=== PATIENT | male | born 1955 | race Caucasian/White ===

== ENCOUNTER 2020-11-10 18:00 | Emergency (ER) | payer BC, SELFPAY | END 2020-11-10 19:55 | disposition left against medical advice (07) | PROVIDERS: Emergency Provider Emergency Medicine; PCP Family Medicine | DX: R19.7 Diarrhea, unspecified (principal) ==

== ENCOUNTER 2020-11-11 06:40 | Emergency (ER) | payer BC, MEDICARE, SELFPAY ==
--- NOTE | ~2020-11-11 | CT_ITS ---
EXAMINATION: CT ABDOMEN AND PELVIS WITHOUT CONTRAST CLINICAL INFORMATION: Chronic diarrhea. Weight loss. COMPARISON: None TECHNIQUE: Multidetector volumetric imaging was performed from the superior aspect of the liver through the pubic symphysis. Sagittal and coronal reformatted images were obtained on the technologist's workstation. This CT examination was performed using dose optimization techniques as appropriate, variously including the following: *Automated exposure control *Adjustment of mA and/or kV according to patient size (this includes techniques or standardized protocols for targeted exams where dose is matched to indication/reason for exam; i.e. extremities or head) *Use of iterative reconstruction technique DLP: 454 mGy-cm FINDINGS: LUNG BASES: There is a 2 mm peripheral left lower lobe nodule axial image 76 series 4. The lung bases are otherwise clear. LIVER, GALLBLADDER, AND BILIARY TREE: There is a 5 mm low-attenuation lesion high in the left lobe of the liver axial image 8 series 3. There is a 5 mm low-attenuation lesion in the left lobe of the liver axial image 11 series 3. These are difficult to characterize due to small size. No other focal liver lesion is seen. The gallbladder is normal. There is no biliary duct dilatation. PANCREAS: Unremarkable. SPLEEN: Unremarkable. ADRENAL GLANDS: Unremarkable. KIDNEYS AND URETERS: The kidneys are normal in size, shape, and attenuation. No hydronephrosis, hydroureter, or calculi seen. No perinephric stranding. BLADDER: Unremarkable. GASTROINTESTINAL TRACT: There is stool throughout the colon questionable for constipation. The small and large bowel are unremarkable. The appendix is unremarkable. ABDOMINAL WALL: No significant hernia is appreciated. There are postsurgical changes to the left lower abdominal wall post hernia repair. LYMPH NODES: Normal. VASCULAR: Unremarkable. PELVIC VISCERA: Unremarkable. OSSEOUS STRUCTURES: There is degenerative disc disease at L4-L5. CT/CT abdomen pelvis wo con IMPRESSION: 2 small low-attenuation liver lesions in the left lobe. These are difficult to characterize due to small size. Stool throughout the colon questionable for constipation.
--- NOTE | ~2020-11-11 | CT_ITS ---
EXAMINATION: CT CHEST WITHOUT CONTRAST CLINICAL INFORMATION: Lung mass. COMPARISON: None TECHNIQUE: Multidetector volumetric CT imaging of the chest was done. Axial MIP volume rendering provided. Sagittal and coronal reformatted images were obtained. This CT examination was performed using dose optimization techniques as appropriate, variously including the following: *Automated exposure control *Adjustment of mA and/or kV according to patient size (this includes techniques or standardized protocols for targeted exams where dose is matched to indication/reason for exam; i.e. extremities or head) *Use of iterative reconstruction technique DLP: 248 mGy-cm FINDINGS: TABLE AND DESK FINISHER: Unremarkable. LUNGS: The lungs are well-expanded and clear of acute pneumonic process. There is focal atelectatic changes right CP angle. There is a 3 mm nodule right upper lobe axial image 32/4. There is a focal atelectatic changes in the area of previously described 200 lung nodule in the left CP angle on axial image 470/7. MEDIASTINUM: The thyroid lobes are symmetrical and normal. The central trachea and the bronchi are widely patent. Heart size and the great vessels are normal caliber. There is no pericardial effusion. No abnormal size mediastinal lymph nodes or mass seen. PLEURA: There is no pleural effusion. No pleural mass or thickening. AXILLA: There are small shotty lymph nodes in the axilla. The chest wall is unremarkable. UPPER ABDOMEN: There is a punctate 5 mm left hepatic lobe hypodensity. No additional liver lesions seen. There is no intrahepatic ductal dilatation. Visualized gallbladder, spleen, pancreas and bilateral adrenal glands are unremarkable. OSSEOUS STRUCTURES: There is moderate ventral spondylosis mid and lower dorsal spine. No lytic or sclerotic process seen. CT/CT chest wo con IMPRESSION: Small 3 mm right upper lobe pulmonary nodule. Previously described 2 mm peripheral left lower lobe pulmonary nodule is not visualized.. There is focal atelectatic changes
[2020-11-11 08:22] VITALS: BP 129/42; PULSE 45; RESP 14; TEMP 36.6; O2SAT 99; BMI 21.9
--- NOTE | 2020-11-11 09:09 | ED_ITS ---
HPI - Nausea/Vomiting/Diarrhea General Chief complaint: Nausea/Vomiting/Diarrhea Stated complaint: Diarrhea Time Seen by Provider: 11/11/20 09:09 History of Present Illness HPI Narrative: This is a 65-year-old male who presents to the emergency department today with complaints of diarrhea. He states this started around October 31 it started as stomach gurgling for about 3 days, and then he reports diarrhea that is liquid and beige in color. States that he is going to the bathroom anywhere between 10-12 times a day. He denies any other symptoms, and denies abdominal pain/discomfort. Since the onset of the diarrhea he states he has lost about 7 pounds. He states he took two COVID test last week a rapid and a PCR test both of which were negative at the time. He denies recent travel, recent sick contacts and recent antibiotic use. Nothing like this has happened to him before. He tried immodium, bland diet and clear liquids with no relief. Past medical history significant for HTN. Previous hernia repairs in the past but no other abdominal surgeries in the past. Last colonoscopy about 5 years ago which was normal per patient. He reached out to his PCP which told him to come to the ED. He reports fatigue, weakness,anorexia, lethargy and diarrhea. But denies abdominal pain, fevers, chills, chest pain, difficulty urinating, and shortness of breath. MD elicited complaint: diarrhea Pertinent past history: anorexia Onset (ago): day(s) (About 10 days ago, progressivly worsening ) Description of diarrhea: watery (zhou/beige in color ) Associated abdominal pain: No Location of pain: none Severity: moderate Exacerbating factors: none Relieving factors: none Associated symptoms: denies other symptoms Treatment prior to arrival: immodium (no relief) Related Data Allergies Allergy/AdvReac Type Severity Reaction Status Date / Time No Known Allergies Allergy Verified 11/11/20 08:28 Review of Systems Constitutional: Constitutional: Reports as per HPI, Reports anorexia, Reports fatigue and Reports weakness Eyes: Eyes: Reports no additional eye complaints ENT: Reports system reviewed and no additional complaints, except as documented Cardiovascular: Cardiovascular: Reports no additional cardiovascular complaints Respiratory: Respiratory: Reports no additional respiratory complaints and Reports no additional respiratory complaints Gastrointestinal: Gastrointestinal: Reports change in bowel habits, Reports diarrhea and Reports loose stools Genitourinary: Genitourinary: Reports no additional male genitourinary complaints and Reports as per HPI Musculoskeletal: Musculoskeletal: Reports no additional musculoskeletal complaints Neurologic: Reports weakness Endocrine: Endocrine: Reports fatigue [facility] Past Medical History Medical History (Updated 11/11/20 @ 14:11 by Dylan Betancourt MD) Bradycardia Hernia Hx of fracture of clavicle Hypertension Social History Social History Patient Tobacco Use Status: Never used Tobacco Use of substances other than those prescribed or required for medical reasons: No Advance Directives: No Advance Directives Information Provided: No Physical Exam Vital Signs: Vital Signs: Last Vital Signs Temp 98.3 F 11/11/20 14:12 Pulse 51 11/11/20 14:12 Resp 16 11/11/20 14:12 BP 134/67 11/11/20 14:12 Pulse Ox 98 11/11/20 14:12 Body Mass Index 21.9 Const: General: healthy appearing, comfortable, no acute distress, alert and awake Nutritional Appearance: average body habitus Orientation/consciousness: patient oriented x3 Limitations: no limitations HENMT: Head: Yes normal to inspection Teeth and gingiva: dentition normal and gingiva normal Throat: Yes posterior oropharynx normal and Yes tonsils normal Eyes: General: appearance normal, both eyes and all related structures Eyelids: Yes eyelids normal Conjunctivae: conjunctivae normal Sclerae: sclerae normal Corneas: corneas normal Pupils: Equal, round and reactive pupils present Chest: Chest palpation & inspection: normal inspection of the chest and normal palpation of entire chest wall Resp: Effort & Inspection: normal respiratory effort and able to speak in complete sentences Auscultation: clear to auscultation bilaterally Cardio: Rate: bradycardic (HR in the low 50's normal for patient ) Rhythm: regular rhythm GI: Inspection: Yes normal to inspection Palpation (GI): Soft to palpation (non-tender not distended ) Auscultation: normal bowel sounds Neuro: General: patient oriented x3, gait normal and moves all extremities Cranial nerves: Yes Equal, round and reactive pupils present Gait exam (Neuro): Normal gait present Motor exam (neuro): 5/5 motor strength present throughout MDM - Nausea/Vomiting/Diarrhea MDM Narrative Medical decision making narrative: Patient reports 7 lb weight loss in two weeks with diarrhea. Will order basic labs, assess hydration status, obtain a stool study, urine and CT of the abdomen to rule out mass or malignancy. Plan to also rehydrate patient. Disposition based of of labs and imaging results. Will continue to observe. CT chest CT abdomen essentially so small nodules in the lung no acute findings , but amount of stool in the abdomen patient a bowel movement in the ER semi solid stool sample was sent for C diff which is unlikely. Patient advised to follow with PCP Lab Data Attestation: I reviewed the patient's lab results. Result diagrams: 11/11/20 10:04 11/11/20 10:04 Labs: Lab Results 11/11/20 11/11/20 11/11/20 Range/Units 10:04 10:04 13:17 WBC 5.7 (4.8-10.8) X10*3/uL RBC 3.96 L (4.60-5.80) X10*6/uL Hgb 12.5 L (14.0-18.0) g/dl Hct 36.3 L (42-52) % MCV 91.7 (80-98) fL MCH 31.6 (27.0-33.0) pg MCHC 34.4 (31.0-36.0) g/dl RDW 12.3 (11.0-16.0) % Plt Count 201 (160-400) X10*3/uL MPV 9.8 (9.4-12.4) fL Immature Gran % (Auto) 0.4 (0.0-0.4) % Neut % (Auto) 61.8 (45-73) % Lymph % (Auto) 30.1 (20-40) % [place] % (Auto) 6.1 (2-11) % Eos % (Auto) 0.9 (0-4) % Baso % (Auto) 0.7 (0-2) % Lymph # (Auto) 1.7 (1.2-4.9) X10*3/uL [place] # (Auto) 0.4 (0.1-1.2) X10*3/uL Eos # (Auto) 0.1 (0.0-0.4) X10*3/uL Baso # (Auto) 0.0 (0.0-0.2) X10*3/uL Abs Immat Gran (auto) 0.02 (0.00-0.03) X10*3/uL Absolute Neuts (auto) 3.5 (2.0-8.3) X10*3/uL Absolute Nucleated RBC 0.000 (0.0-0.012) X10*3/uL Nucleated RBC % (auto) 0.0 (0.0-0.2) /100WBC Sodium 139 (135-145) mmol/L Potassium 3.6 (3.3-5.1) mmol/L Chloride 105 (96-108) mmol/L Carbon Dioxide 26 (22-29) mmol/L Anion Gap 12 (12-20) BUN 16 (9-16) mg/dL Creatinine 0.86 (0.5-1.4) mg/dL Estim Creat Clear Calc 81.8 Estimated GFR > 60 Random Glucose 92 (60-115) mg/dL Calcium 8.7 (8.4-10.2) mg/dL Total Bilirubin 0.6 (0.0-1.0) mg/dL Direct Bilirubin 0.2 (0.0-0.5) mg/dL AST 27 (5-37) U/L ALT 25 (0-40) U/L Alkaline Phosphatase 53 (39-117) U/L Total Protein 6.1 L (6.5-8.0) g/dL Albumin 3.9 (3.5-5.0) g/dL Lipase 18 (8-78) U/L C. difficile Tox B Gene NEGATIVE (Negative) Discharge Plan Discharge Clinical Impression: Gastroenteritis Patient Disposition: Home, Self-Care Instructions: Gastroenteritis (ED) Additional Instructions: Follow up with GI and PCP If symptoms worsen or persist, return to the ED or visit your primary care provider Avoid spicy and greasy foods. Follow a bland diet. Ensure adequate hydration Interventions: ED Discharge Assessment Last Done: 11/11/20 14:19 Discharge Date/Time: 11/11/20 14:19 Print Language: Dominican
[2020-11-11] MEDS: 0.9 % Sodium Chloride 1,000 ML 999 ML IVCONT (10:09)
[2020-11-11 10:11] LABS: MANUAL DIFF FLAG NO
[2020-11-11 10:12] LABS: Basophils Percent Auto 0.7 % (0-2); Eosinophils Absolute Auto 0.1 X10*3/uL (0.0-0.4); Eosinophils Percent Auto 0.9 % (0-4); Hematocrit 36.3 % (42-52); Hemoglobin 12.5 g/dl (14.0-18.0); Imm Gran Abs Auto 0.02 X10*3/uL (0.00-0.03); Imm Gran Pct Auto 0.4 % (0.0-0.4); Lymphocytes Absolute Auto 1.7 X10*3/uL (1.2-4.9); Lymphocytes Percent Auto 30.1 % (20-40); Mean Corpuscular HGB Conc 34.4 g/dl (31.0-36.0); Mean Corpuscular Hemoglobin 31.6 pg (27.0-33.0); Mean Corpuscular Volume 91.7 fL (80-98); Mean Platelet Volume 9.8 fL (9.4-12.4); Monocytes Absolute Auto 0.4 X10*3/uL (0.1-1.2); Monocytes Percent Auto 6.1 % (2-11); Neutrophils Absolute Auto 3.5 X10*3/uL (2.0-8.3); Neutrophils Percent Auto 61.8 % (45-73); Platelet Count 201 X10*3/uL (160-400); Red Blood Count 3.96 X10*6/uL (4.60-5.80); Red Cell Distribution Width 12.3 % (11.0-16.0); White Blood Count 5.7 X10*3/uL (4.8-10.8)
[2020-11-11 10:28] LABS: Alanine Aminotransferase 25 U/L (0-40); Albumin Level 3.9 g/dL (3.5-5.0); Alkaline Phosphatase 53 U/L (39-117); Anion Gap 12 (12-20); Aspartate Amino Transferase 27 U/L (5-37); Bilirubin Direct 0.2 mg/dL (0.0-0.5); Bilirubin Total 0.6 mg/dL (0.0-1.0); Blood Urea Nitrogen 16 mg/dL (9-16); Calcium 8.7 mg/dL (8.4-10.2); Carbon Dioxide 26 mmol/L (22-29); Chloride 105 mmol/L (96-108); Creatinine Clr Calc Pharmacy 81.8; Estimated Glomerular Filt Rate > 60; Glucose Random 92 mg/dL (60-115); Lipase 18 U/L (8-78); Potassium 3.6 mmol/L (3.3-5.1); Sodium 139 mmol/L (135-145); Total Protein 6.1 g/dL (6.5-8.0)
[2020-11-11 11:18] VITALS: BP 128/72; PULSE 48; RESP 14; TEMP 36.6; O2SAT 100
[2020-11-11 14:12] VITALS: BP 134/67; PULSE 51; RESP 16; TEMP 36.8; O2SAT 98
[2020-11-11 14:20] LABS: CDiff Gene PCR NEGATIVE (Negative)
== END 2020-11-11 14:19 | disposition home or self-care (01) ==
PROVIDERS: Emergency Provider Internal Medicine; PCP Family Medicine
DX: K52.9 Noninfective gastroenteritis and colitis, unspecified (principal); Z79.899 Other long term (current) drug therapy
CPT/HCPCS: 36415; 71250; 74176; 80048; 80076; 83690; 85025; 87493; 96360; 99284

== ENCOUNTER 2021-01-10 20:54 | Emergency (ER) | payer BC, SELFPAY ==
--- NOTE | 2021-01-10 21:01 | ECG_ITS ---
Test Reason : DIZZINESS Blood Pressure : / mmHG Vent. Rate : 051 BPM Atrial Rate : 051 BPM P-R Int : 168 ms QRS Dur : 110 ms QT Int : 468 ms P-R-T Axes : 004 -10 040 degrees QTc Int : 431 ms Sinus bradycardia Moderate voltage criteria for LVH, may be normal variant ( Sokolow-Hopkins , [place] product ) Borderline ECG No previous ECGs available Referred By: Dylan Betancourt Electronically Signed By:SHALA ROBBINS MD
[2021-01-10 21:12] VITALS: BP 110/60; BP 128/61; PULSE 50; PULSE 57; RESP 18; TEMP 36.8; O2SAT 98; BMI 22.8
--- NOTE | 2021-01-10 21:20 | ED_ITS ---
HPI - Syncope General Chief Complaint: Dizziness Stated Complaint: near syncope Time Seen by Provider: 01/10/21 21:15 Source: patient Mode of arrival: EMS Limitations: no limitations History of Present Illness HPI narrative: Patient with no known coronary disease history of hypertension in good health very active had dinner earlier and then had few drinks and weight marijuana for the 1st time while sitting started feeling lightheaded and weak cold sweats almost passed out. No chest pain no palpitations no abdominal pain. While EN route patient felt nauseated and vomited 1 time also after arrival patient had abdominal cramps and had a 1 loose bowel. Patient never had similar episode in the past no history of palpitation or chest pain no headache no focal deficit Related Data Allergies Allergy/AdvReac Type Severity Reaction Status Date / Time No Known Allergies Allergy Verified 11/11/20 08:28 Review of Systems Review of Systems: Yes all other systems are reviewed and are negative [facility] Past Medical History Medical History Bradycardia Hernia Hx of fracture of clavicle Hypertension Social History Social History Patient Tobacco Use Status: Never used Tobacco Advance Directives: No Advance Directives Information Provided: No Physical Exam Vital Signs: Vital Signs: Last Vital Signs Temp 98.0 F 01/10/21 22:47 Pulse 64 01/11/21 00:37 Resp 16 01/11/21 00:37 BP 126/72 01/11/21 00:37 Pulse Ox 98 01/11/21 00:37 Body Mass Index 22.8 Appearance: Alert. Oriented X3. No acute distress. Looks exhausted and weak Eyes: No pallor or icterus ENT: Pharynx normal. Oral Mucosa moist Neck: Normal inspection. Neck supple. CVS: Normal heart rate and rhythm. Pulses normal. Respiratory: No respiratory distress. Equal air entry bilateral, no wheezing/rales/rhonchi Abdomen: Soft and nontender. Bowel sounds are present, no mass palpable, no CVA tenderness Skin: Skin warm and dry. Normal skin color. Normal skin turgor. Extremities: No lower extremity edema. No calf tenderness Neuro: Oriented X 3. No motor deficit. No sensory deficit.No cerebellar signs , cranial nerves II-XII intact MDM - Syncope MDM Narrative Medical decision making narrative: Patient near-syncope episode likely vasovagal 2 sets of high sensitive troponin negative EKG normal no chest pain or palpitation patient feeling much better after IV fluids and p.o. fluids ambulatory now , orthostatics normal will discharge patient home advised to follow with PCP Lab Data Attestation: I reviewed the patient's lab results. Result diagrams: 01/10/21 21:35 01/10/21 21:35 Labs: Lab Results 01/10/21 01/10/21 01/10/21 Range/Units 21:35 21:35 21:35 WBC 7.4 (4.8-10.8) X10*3/uL RBC 3.69 L (4.60-5.80) X10*6/uL Hgb 11.8 L (14.0-18.0) g/dl Hct 35.3 L (42.0-52.0) % MCV 95.7 (80.0-98.0) fL MCH 32.0 (27.0-33.0) pg MCHC 33.4 (31.0-36.0) g/dl RDW 13.0 (11.0-16.0) % Plt Count 185 (160-400) X10*3/uL MPV 9.7 (9.4-12.4) fL Immature Gran % (Auto) 0.3 (0.0-0.4) % Neut % (Auto) 56.4 (45-73) % Lymph % (Auto) 33.4 (20-40) % [place] % (Auto) 7.1 (2-11) % Eos % (Auto) 2.4 (0-4) % Baso % (Auto) 0.4 (0-2) % Lymph # (Auto) 2.5 (1.2-4.9) X10*3/uL [place] # (Auto) 0.5 (0.1-1.2) X10*3/uL Eos # (Auto) 0.2 (0.0-0.4) X10*3/uL Baso # (Auto) 0.0 (0.0-0.2) X10*3/uL Abs Immat Gran (auto) 0.02 (0.00-0.03) X10*3/uL Absolute Neuts (auto) 4.2 (2.0-8.3) x10*3/uL Absolute Nucleated RBC 0.000 (0.0-0.012) X10*3/uL Nucleated RBC % (auto) 0.0 (0.0-0.2) /100WBC Sodium 141 (135-145) mmol/L Potassium 3.4 (3.3-5.1) mmol/L Chloride 107 (96-108) mmol/L Carbon Dioxide 26 (22-29) mmol/L Anion Gap 11 L (12-20) BUN 16 (9-16) mg/dL Creatinine 0.94 (0.5-1.4) mg/dL Estim Creat Clear Calc 77.9 Estimated GFR > 60 Random Glucose 125 H D (60-115) mg/dL Calcium 8.3 L (8.4-10.2) mg/dL Magnesium 2.1 (1.6-2.6) mg/dL Total Bilirubin 0.3 (0.0-1.0) mg/dL AST 28 (5-37) U/L ALT 31 (0-40) U/L Alkaline Phosphatase 59 (39-117) U/L Troponin I High Sens 9.3 (<3.5-35.0) ng/L Total Protein 6.0 L (6.5-8.0) g/dL Albumin 3.9 (3.5-5.0) g/dL Urine Opiates Screen (Not Detect) Urine Fentanyl Screen (Not Detect) Ur Barbiturates Screen (Not Detect) Ur Phencyclidine Scrn (Not Detect) Ur Amphetamines Screen (Not Detect) U Benzodiazepines Scrn (Not Detect) Urine Cocaine Screen (Not Detect) U Marijuana (THC) Screen (Not Detect) Ethyl Alcohol mg/dL 01/10/21 01/11/21 01/11/21 Range/Units 21:35 00:20 00:43 WBC (4.8-10.8) X10*3/uL RBC (4.60-5.80) X10*6/uL Hgb (14.0-18.0) g/dl Hct (42.0-52.0) % MCV (80.0-98.0) fL MCH (27.0-33.0) pg MCHC (31.0-36.0) g/dl RDW (11.0-16.0) % Plt Count (160-400) X10*3/uL MPV (9.4-12.4) fL Immature Gran % (Auto) (0.0-0.4) % Neut % (Auto) (45-73) % Lymph % (Auto) (20-40) % [place] % (Auto) (2-11) % Eos % (Auto) (0-4) % Baso % (Auto) (0-2) % Lymph # (Auto) (1.2-4.9) X10*3/uL [place] # (Auto) (0.1-1.2) X10*3/uL Eos # (Auto) (0.0-0.4) X10*3/uL Baso # (Auto) (0.0-0.2) X10*3/uL Abs Immat Gran (auto) (0.00-0.03) X10*3/uL Absolute Neuts (auto) (2.0-8.3) x10*3/uL Absolute Nucleated RBC (0.0-0.012) X10*3/uL Nucleated RBC % (auto) (0.0-0.2) /100WBC Sodium (135-145) mmol/L Potassium (3.3-5.1) mmol/L Chloride (96-108) mmol/L Carbon Dioxide (22-29) mmol/L Anion Gap (12-20) BUN (9-16) mg/dL Creatinine (0.5-1.4) mg/dL Estim Creat Clear Calc Estimated GFR Random Glucose (60-115) mg/dL Calcium (8.4-10.2) mg/dL Magnesium (1.6-2.6) mg/dL Total Bilirubin (0.0-1.0) mg/dL AST (5-37) U/L ALT (0-40) U/L Alkaline Phosphatase (39-117) U/L Troponin I High Sens 9.3 (<3.5-35.0) ng/L Total Protein (6.5-8.0) g/dL Albumin (3.5-5.0) g/dL Urine Opiates Screen Not Detected (Not Detect) Urine Fentanyl Screen Not Detected (Not Detect) Ur Barbiturates Screen Not Detected (Not Detect) Ur Phencyclidine Scrn Not Detected (Not Detect) Ur Amphetamines Screen Not Detected (Not Detect) U Benzodiazepines Scrn Not Detected (Not Detect) Urine Cocaine Screen Not Detected (Not Detect) U Marijuana (THC) Screen POSITIVE H (Not Detect) Ethyl Alcohol < 10 mg/dL ECG Data Attestation: I personally reviewed and interpreted this ECG as follows: Interpretation: Sinus bradycardia heart rate 51 beats per minute LVH no acute ST-T changes no acute ischemia Discharge Plan Discharge Clinical Impression: Vasovagal near-syncope Patient Disposition: Home, Self-Care Instructions: Near Syncope (ED) Additional Instructions: Drink plenty of fluids Follow with PCP for further evaluation including stress test/echocardiogram Report to the ER for recurrence of the similar episodes
[2021-01-10 21:40] LABS: MANUAL DIFF FLAG NO
[2021-01-10 21:41] LABS: Basophils Percent Auto 0.4 % (0-2); Eosinophils Absolute Auto 0.2 X10*3/uL (0.0-0.4); Eosinophils Percent Auto 2.4 % (0-4); Hematocrit 35.3 % (42.0-52.0); Hemoglobin 11.8 g/dl (14.0-18.0); Imm Gran Abs Auto 0.02 X10*3/uL (0.00-0.03); Imm Gran Pct Auto 0.3 % (0.0-0.4); Lymphocytes Absolute Auto 2.5 X10*3/uL (1.2-4.9); Lymphocytes Percent Auto 33.4 % (20-40); Mean Corpuscular HGB Conc 33.4 g/dl (31.0-36.0); Mean Corpuscular Volume 95.7 fL (80.0-98.0); Mean Platelet Volume 9.7 fL (9.4-12.4); Monocytes Absolute Auto 0.5 X10*3/uL (0.1-1.2); Monocytes Percent Auto 7.1 % (2-11); Neutrophils Absolute Auto 4.2 x10*3/uL (2.0-8.3); Neutrophils Percent Auto 56.4 % (45-73); Platelet Count 185 X10*3/uL (160-400); Red Blood Count 3.69 X10*6/uL (4.60-5.80); White Blood Count 7.4 X10*3/uL (4.8-10.8)
[2021-01-10 21:53] LABS: Ethanol < 10 mg/dL
[2021-01-10 21:57] LABS: Alanine Aminotransferase 31 U/L (0-40); Albumin Level 3.9 g/dL (3.5-5.0); Alkaline Phosphatase 59 U/L (39-117); Anion Gap 11 (12-20); Aspartate Amino Transferase 28 U/L (5-37); Bilirubin Total 0.3 mg/dL (0.0-1.0); Blood Urea Nitrogen 16 mg/dL (9-16); Calcium 8.3 mg/dL (8.4-10.2); Carbon Dioxide 26 mmol/L (22-29); Chloride 107 mmol/L (96-108); Creatinine Clr Calc Pharmacy 77.9; Estimated Glomerular Filt Rate > 60; Glucose Random 125 mg/dL (60-115); Magnesium 2.1 mg/dL (1.6-2.6); Potassium 3.4 mmol/L (3.3-5.1); Sodium 141 mmol/L (135-145)
[2021-01-10 22:02] LABS: Troponin-I High Sensitivity 9.3 ng/L (<3.5-35.0)
[2021-01-10] MEDS: 0.9 % Sodium Chloride 1,000 ML 999 ML IVCONT (22:10)
[2021-01-10 22:47] VITALS: BP 132/72; PULSE 53; RESP 16; TEMP 36.7; O2SAT 99
[2021-01-11 00:33] VITALS: BP 125/75; PULSE 62
[2021-01-11 00:35] VITALS: BP 112/79; PULSE 66
[2021-01-11 00:37] VITALS: BP 126/72; PULSE 64; PULSE 76; RESP 16; O2SAT 98
[2021-01-11 00:47] LABS: Troponin-I High Sensitivity 9.3 ng/L (<3.5-35.0)
[2021-01-11 01:03] LABS: Amphetamine Screen Urine Not Detected (Not Detect); Barbiturates, Urine Not Detected (Not Detect); Benzodiazepines Screen Urine Not Detected (Not Detect); Cannabinoid Screen Urine POSITIVE (Not Detect); Cocaine Screen Urine Not Detected (Not Detect); Fentanyl, urine Not Detected (Not Detect); Opiate Screen Urine Not Detected (Not Detect); Phencyclidine Screen Urine Not Detected (Not Detect)
== END 2021-01-11 02:02 | disposition home or self-care (01) ==
PROVIDERS: Emergency Provider Internal Medicine; PCP Family Medicine
DX: R55 Syncope and collapse (principal); R42 Dizziness and giddiness; Z79.899 Other long term (current) drug therapy
CPT/HCPCS: 36415; 80053; 80307; 82077; 83735; 84484; 85025; 93005; 96360; 99284

== ENCOUNTER 2021-12-27 15:45 | Emergency (ER) | payer MEDICARE, BC, SELFPAY ==
[2021-12-27 17:21] VITALS: BP 166/85; PULSE 55; RESP 18; TEMP 36; O2SAT 99; BMI 22.8
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
[2021-12-27] MEDS: Diphth,Pertus(ACell),Tet Adult 0.5 ML SYRINGE IM (20:16)
--- OUTSIDE RECORDS SUMMARY | 2021-12-27 20:16 | XMS_ITS | Continuity of Care Document ---
:1955 Author Organization [facility] Address [address] [place] [address]- Care Team Providers Name Role Phone Gokul FINCH, Iris Smith Primary Care Physician Encounter [facility] Date(s): 04/09/20 - 04/09/[address] [id number] Discharge Disposition: A-D/C Home Attending Physician: Moi Monterroso MD Admitting Physician: Moi Monterroso MD Referring Physician: Moi Monterroso MD Allergies, Adverse Reactions, Alerts Substance Reaction Severity Status Kiwi1 throat closes Active 1laryngeal swelling, resolution with benadryl Immunizations Given and Recorded Vaccine Date Status Refusal Reason Influenza Virus Vaccine (oldterm) 12/06/19 Recorded tetanus-diphtheria toxoids (Td) 10/11/19 Recorded Not Given Vaccine Date Status Refusal Reason pneumococcal 13-valent vaccine1 03/24/20 Not Given Permanently Refused 1Result Comment: med not available Medications Colace sodium 100 mg oral capsule 100 mg, 1, capsule, By Mouth, 2 times a day, # 60 capsule, Refills 0, Tot. Refills 0, Maintenance, 03/24/20 12:03:00 EST, Route to Pharmacy Electronically, [facility], Partial fill upon patient request if the prescription is for a schedu... Start Date: 03/24/20 Stop Date: 04/23/20 Status: OrderedFish Oil By Mouth, 0 Refills, Maintenance, 11/17/18 14:53:18 EDT Start Date: 11/17/18 Status: Orderedgarlic oral tablet 0 Refills, Maintenance, 04/02/19 9:59:00 EST Start Date: 04/02/19 Status: Orderedhydrochlorothiazide 12.5 mg oral tablet 1 tablet = 12.5 mg, By Mouth, Daily, # 30 tablet, 5 Refills, Maintenance, 04/07/20 16:40:00 EST, Tablet, [facility][id number], Partial fill upon patient request if the prescription is for a schedule II opioid drug., 175.26, cm, 04/04/20 13:50:0... Start Date: 04/07/20 Status: OrderedIron 100 Plus By Mouth, Daily, 0 Refills, Maintenance, 09/20/19 10:31:00 EDT Start Date: 09/20/19 Status: Orderedlosartan 100 mg oral tablet 1 tablet = 100 mg, By Mouth, Daily, # 30 tablet, 5 Refills, Maintenance, 04/07/20 16:41:00 EST, Tablet, [facility] #[id number], Partial fill upon patient request if the prescription is for a schedule II opioid drug., 175.26, cm, 04/04/20 13:50:00... Start Date: 04/07/20 Status: Orderedlosartan 100 mg oral tablet 1 tablet = 100 mg, By Mouth, Daily, # 30 tablet, 0 Refills, Maintenance, 03/24/20 6:25:00 EST, Tablet, Partial fill upon patient request if the prescription is for a schedule II opioid drug. Start Date: 03/24/20 Status: OrderedMultivitamin Daily, 0 Refills, Maintenance, 11/17/18 14:53:09 EDT Start Date: 11/17/18 Status: OrderedOccupational Therapy Occupational Therapy, See Instructions, # 1 each, Refills 0, Tot. Refills 0, Maintenance, Outpatientoccupational therapy, 03/24/20 10:20:00 EST, Supply Start Date: 03/24/20 Status: OrderedoxyCODONE 5 mg oral capsule 1 capsule = 5 mg, By Mouth, Every 4 hours, # 42 capsule, 0 Refills, Maintenance, 04/09/20 9:59:00 EST, Capsule, Partial fill upon patient request if the prescription is for a schedule II opioid drug. Start Date: 04/09/20 Status: OrderedTylenol 325 mg oral tablet 650 mg, 2, tablet, By Mouth, Every 4 hours, for 30 days, # 360 tablet, Refills 0, Tot. Refills 0, Acute 04/23/20 12:03:00 EST, 03/24/20 12:03:00 EST, Route to Pharmacy Electronically, [facility], Partial fill upon patient request if the... Start Date: 03/24/20 Stop Date: 04/23/20 Status: Ordered Problem List Condition Effective Dates Status Health Status Informant Anemia(Confirmed) Active Asthma(Confirmed) Active Multiple closed fractures of ribs of Active left side(Confirmed) Complicated migraine(Confirmed) Active History of squamous cell carcinoma of Active skin(Confirmed) Hypertension(Confirmed) Active Results Radiology Reports Exam Date Time Procedure Performing Provider Status 04/09/20 9:30 AM C-Arm < 1 Hour Katherine Gregorio; Auth ([facility] ed) Notes:(C-Arm < 1 Hour) Reason For Exam: left clavicle ORIFRESULT: C-Arm < 1 Hour PROCEDURE: Clavicle Complete Left, C-Arm < 1 Hour CLINICAL INDICATION: 65 years old Male with Reason: Left clavicle ORIF; Special Instructions: Ft 0.5TT 50 min 4 images. COMPARISONS: 03/23/2020.. FINDINGS: 2 intraoperative fluoroscopic images were submitted for interpretation. A radiologist was not in attendance. A side plate and transfixing screws through the clavicle shaft with partial visualization of the midclavicular fracture site. The alignment is anatomical. The hardware is intact. Minimally displaced fractures in the left lateral third and fourth ribs. There is also a minimally displaced fracture in the left posterior fourth rib. Technologist time: 50 minutes Fluoroscopy time: 0.5 seconds DAP:0.1358 Gycm2 IMPRESSION: 1. Anatomical alignment and intact hardware status post clavicle fracture repair. Please refer to the operative note for surgical details. 2. Minimally displaced fractures in the left third and fourth ribs as seen on prior CT. Thank you for allowing me to participate in the care of this patient. WSN: [id number] Ordering Physician: Moi Monterroso Dictated By: Jaun Navarro MD Dictated Date/Time: 04/09/20 12:37 p Reviewed By: Jaun Navarro MD Signed By: Jaun Navarro MD Signed Date/Time: 04/09/20 12:37 pm Transcribed By: ABDIRAHMAN Transcribed Date/Time: 04/09/20 12:33 pm Exam Date Time Procedure Performing Provider Status 04/09/20 9:30 AM Clavicle Complete Left Katherine Gregorio; Auth (Verified) Notes:(Clavicle Complete Left) Reason For Exam: Left clavicle ORIFRESULT: Clavicle Complete Left PROCEDURE: Clavicle Complete Left, C-Arm < 1 Hour CLINICAL INDICATION: 65 years old Male with Reason: Left clavicle ORIF; Special Instructions: Ft 0.5TT 50 min 4 images. COMPARISONS: 03/23/2020.. FINDINGS: 2 intraoperative fluoroscopic images were submitted for interpretation. A radiologist was not in attendance. A side plate and transfixing screws through the clavicle shaft with partial visualization of the midclavicular fracture site. The alignment is anatomical. The hardware is intact. Minimally displaced fractures in the left lateral third and fourth ribs. There is also a minimally displaced fracture in the left posterior fourth rib. Technologist time: 50 minutes Fluoroscopy time: 0.5 seconds DAP:0.1358 Gycm2 IMPRESSION: 1. Anatomical alignment and intact hardware status post clavicle fracture repair. Please refer to the operative note for surgical details. 2. Minimally displaced fractures in the left third and fourth ribs as seen on prior CT. Thank you for allowing me to participate in the care of this patient. WSN: [id number] Ordering Physician: Moi Monterroso Dictated By: Jaun Navarro MD Dictated Date/Time: 04/09/20 12:37 p Reviewed By: Jaun Navarro MD Signed By: Jaun Navarro MD Signed Date/Time: 04/09/20 12:37 pm Transcribed By: ABDIRAHMAN Transcribed Date/Time: 04/09/20 12:33 pm Vital Signs Most recent to oldest 1 2 3 [Reference Range]: Height 175.26 cm 175.26 cm (04/09/20 7:02 AM) (04/01/20 3:09 PM) Weight 74 kg 70.45 kg (04/09/20 7:02 AM) (04/01/20 3:09 PM) Oxygen Saturation [94-100 96 % 96 % 96 % %] (04/09/20 11:45 AM) (04/09/20 11:30 AM) (04/09/20 1 1:15 AM) Pulse Rate [55-90 bpm] 53 bpm *L* (2/10/21 7:02 AM) Body Mass Index 24.09 22.94 [18.5-24.99] (04/09/20 7:02 AM) (04/01/20 3:09 PM) Blood Pressure 131/81 mm Hg 141/81 mm Hg 141/81 mm Hg [90-138/55-84 mm Hg] (04/09/20 11:45 AM) *H* *H* (04/09/20 11:30 AM) (04/09/20 11:1 5 AM) Respiratory Rate [16-30 16 br/min 19 br/min 17 br/mi n br/min] (04/09/20 11:45 AM) (04/09/20 11:30 AM) (04/09/20 1 1:15 AM) Temperature [96.8-100.4 97.7 DegF 98 DegF DegF] (04/09/20 9:45 AM) (04/09/20 7:02 AM) Liters per Minute 6 L/min 6 L/min 6 L/min (04/09/20 10:15 AM) (04/09/20 10:00 AM) (04/09/20 9 :45 AM) Mode of Delivery (Oxygen) Room air Room air Room a ir (04/09/20 11:30 AM) (04/09/20 10:45 AM) (04/09/20 1 0:30 AM) Blood pressure sites Arm, left (04/09/20 7:02 AM) Temperature Route Temporal Temporal (04/09/20 9:45 AM) (04/09/20 7:02 AM) Dry Weight 70.45 kg (04/01/20 3:09 PM) Weight Obtained Via Standing scale Patient/family stated (04/09/20 7:02 AM) (04/01/20 3:09 PM) Dry Weight Obtained Via Patient/family stated (04/01/20 3:09 PM) Social History Social History Type Response Smoking Status Never (less than 100 in life time) entered on: 01/05/18 Sex Male
--- OUTSIDE RECORDS SUMMARY | 2021-12-27 20:16 | XMS_ITS | Continuity of Care Document ---
:1955 Author Organization [facility] Address [address] [place] [address] Drive [address] [place] [address]- Care Team Providers Name Role Phone Gokul FINCH, Iris Smith Primary Care Physician [phone] Encounter [facility] Date(s): 04/01/20 - 05/01/[address] [place] [id number]- Attending Physician: Suzanna Estevez Admitting Physician: Suzanna Estevez Referring Physician: AdmtrSuzanna Allergies, Adverse Reactions, Alerts Substance Reaction Severity [...] 03/24/20 12:03:00 EST, Route to Pharmacy Electronically, [facility], Partial fill upon patient [...] 5 Refills, Maintenance, 04/07/20 16:40:00 EST, Tablet, [facility][id number], Partial fill upon patient request if the prescription is for a schedule II opioid drug., 175.26, cm, 04/04/20 13:50:0... Start Date: 04/07/20 Status: OrderedIron 100 Plus By Mouth, Daily, 0 Refills, Maintenance, 09/20/19 10:31:00 EDT Start Date: 09/20/19 Status: Orderedlosartan 100 mg oral tablet 1 tablet = 100 mg, By Mouth, Daily, # 30 tablet, 5 Refills, Maintenance, 04/07/20 16:41:00 EST, Tablet, [facility][id number], Partial fill upon patient request if the [...] II opioid drug. Start Date: 04/09/20 Status: Ordered Problem List Condition Effective Dates Status Health Status Informant Anemia(Confirmed) Active Asthma(Confirmed) Active Multiple closed fractures of ribs of Active left side(Confirmed) Complicated migraine(Confirmed) Active History of squamous cell carcinoma of Active skin(Confirmed) Hypertension(Confirmed) Active Social History Social History Type Response Smoking Status Never (less than 100 in life time) entered on: 01/05/18 Sex Male
--- OUTSIDE RECORDS SUMMARY | 2021-12-27 20:16 | XMS_ITS | Continuity of Care Document ---
:1955 Author Organization [facility] Address [address] [place] [address]- Care Team Providers Name Role Phone Gokul FINCH, Iris Smith Primary Care Physician Encounter [facility] Date(s): 03/24/20 - 04/23/[address] [place] [id number] Allergies, Adverse Reactions, Alerts Substance Reaction Severity [...] 03/24/20 12:03:00 EST, Route to Pharmacy Electronically, [facility], Partial fill upon patient [...] 5 Refills, Maintenance, 04/07/20 16:40:00 EST, Tablet, [facility][id number], Partial fill upon patient request if the prescription is for a schedule II opioid drug., 175.26, cm, 04/04/20 13:50:0... Start Date: 04/07/20 Status: OrderedIron 100 Plus By Mouth, Daily, 0 Refills, Maintenance, 09/20/19 10:31:00 EDT Start Date: 09/20/19 Status: Orderedlosartan 100 mg oral tablet 1 tablet = 100 mg, By Mouth, Daily, # 30 tablet, 5 Refills, Maintenance, 04/07/20 16:41:00 EST, Tablet, [facility] #[id number], Partial fill upon patient request if the [...]
--- OUTSIDE RECORDS SUMMARY | 2021-12-27 20:16 | XMS_ITS | Continuity of Care Document ---
:1955 Author Organization [facility] Address [address] [place] [address] Drive [address] [place] [address]- Care Team Providers Name Role Phone Gokul FINCH, Iris Smith Primary Care Physician Encounter [facility] Date(s): 04/01/20 - 05/01/[address] [place] [id number]- Attending Physician: Suzanna Estevez Admitting Physician: AdmSuzanna horne Referring Physician: AdmtrSuzanna Allergies, Adverse Reactions, Alerts [...] 03/24/20 12:03:00 EST, Route to Pharmacy Electronically, [facility], Partial fill upon patient [...] 5 Refills, Maintenance, 04/07/20 16:40:00 EST, Tablet, [facility][id number], Partial fill upon patient request if the prescription is for a schedule II opioid drug., 175.26, cm, 04/04/20 13:50:0... Start Date: 04/07/20 Status: OrderedIron 100 Plus By Mouth, Daily, 0 Refills, Maintenance, 09/20/19 10:31:00 EDT Start Date: 09/20/19 Status: Orderedlosartan 100 mg oral tablet 1 tablet = 100 mg, By Mouth, Daily, # 30 tablet, 5 Refills, Maintenance, 04/07/20 16:41:00 EST, Tablet, [facility] #[id number], Partial fill upon patient request if the [...]
--- OUTSIDE RECORDS SUMMARY | 2021-12-27 20:16 | XMS_ITS | Continuity of Care Document ---
:1955 Author Organization [facility] Address [address] [place] [address] Drive [address] [place] [address]- Care Team Providers Name Role Phone Gokul FINCH, Iris Smith Primary Care Physician Encounter [facility] Date(s): 04/01/20 - 04/08/[address] [place] [id number] Attending Physician: Reji FINCH, Curt Allergies, Adverse Reactions, Alerts Substance Reaction Severity [...] 03/24/20 12:03:00 EST, Route to Pharmacy Electronically, [facility], Partial fill upon patient request [...] 5 Refills, Maintenance, 04/07/20 16:40:00 EST, Tablet, [facility][id number], Partial fill upon patient request if the prescription is for a schedule II opioid drug., 175.26, cm, 04/04/20 13:50:0... Start Date: 04/07/20 Status: OrderedIron 100 Plus By Mouth, Daily, 0 Refills, Maintenance, 09/20/19 10:31:00 EDT Start Date: 09/20/19 Status: Orderedlosartan 100 mg oral tablet 1 tablet = 100 mg, By Mouth, Daily, # 30 tablet, 5 Refills, Maintenance, 04/07/20 16:41:00 EST, Tablet, [facility] #[id number], Partial fill upon patient request if the [...] capsule = 5 mg, By Mouth, Every 6 hours, 0 Refills, Maintenance, 04/01/20 13:01:00 EST, Partial fill upon patient request if the prescription is for a schedule II opioid drug. Start Date: 04/01/20 Status: OrderedTylenol 325 mg oral tablet 650 mg, 2, tablet, By Mouth, Every 4 hours, for 30 days, # 360 tablet, Refills 0, Tot. Refills 0, Acute 04/23/20 12:03:00 EST, 03/24/20 12:03:00 EST, Route to Pharmacy Electronically, [facility], Partial fill upon patient request if the... Start Date: 03/24/20 Stop Date: 04/23/20 Status: Ordered Problem List Condition Effective Dates Status Health Status Informant Anemia(Confirmed) Active Asthma(Confirmed) Active Multiple closed fractures of ribs of Active left side(Confirmed) Complicated migraine(Confirmed) Active History of squamous cell carcinoma of Active skin(Confirmed) Hypertension(Confirmed) Active Vital Signs Most recent to oldest [Reference Range]: 1 Height 175.3 cm (04/01/20 12:55 PM) Pulse Rate [55-90 bpm] 58 bpm (04/01/20 12:55 PM) Blood Pressure [90-138/55-84 mm Hg] 121/74 mm Hg (04/01/20 12:55 PM) Temperature [96.8-100.4 DegF] 97.3 DegF (04/01/20 12:55 PM) Blood pressure sites Arm, right (04/01/20 12:55 PM) Temperature Route Temporal (04/01/20 12:55 PM) Social History Social History Type Response Smoking Status Never (less than 100 in life time) entered on: 01/05/18 Sex Male
--- OUTSIDE RECORDS SUMMARY | 2021-12-27 20:16 | XMS_ITS | Continuity of Care Document ---
:1955 Author Organization [facility] Address [address] [place] [address]- Care Team Providers Name Role Phone Gokul FINCH, Iris Smith Primary Care Physician Encounter [facility] [place] Date(s): 11/11/20 - 11/18/20 [facility] [address], [place] [address] Attending Physician: Not on Staff, Attending MD Referring Physician: Iris Hodgson MD Allergies, Adverse Reactions, Alerts Substance Reaction Severity Status Kiwi1 throat closes Active 1laryngeal swelling, resolution with benadryl Immunizations Given and Recorded Vaccine Date Status Refusal Reason pneumococcal 13-valent vaccine1 10/13/20 Given Influenza Virus Vaccine (oldterm) 12/06/19 Recorded tetanus-diphtheria toxoids (Td) 10/11/19 Recorded Not Given Vaccine Date Status Refusal Reason pneumococcal 13-valent vaccine2 03/24/20 Not Given Permanently Refused 1Result Comment: [id number] Comment: med not available Medications Fish Oil By Mouth, 0 Refills, Maintenance, 11/17/18 14:53:18 EDT Start Date: 11/17/18 Status: OrderedFluorodex 0 Refills, Maintenance, 10/13/20 16:08:00 EDT, Partial fill upon patient request if the prescriptionis for a schedule II opioid drug. Start Date: 10/13/20 Status: Orderedgarlic oral tablet 0 Refills, Maintenance, 04/02/19 9:59:00 EST Start Date: 04/02/19 Status: Orderedhydrochlorothiazide 12.5 mg oral tablet 1 tablet, By Mouth, Daily, # 30 tablet, 5 Refills, Maintenance, 09/30/20 8:49:00 EDT, [facility] #[id number], 175.26, cm, 04/09/20 7:02:00 EST, Height, 70.45, kg, 04/01/20 15:09:00 EST, Dry Weight Start Date: 09/30/20 Status: Orderedlosartan 100 mg oral tablet 1 tablet = 100 mg, By Mouth, Daily, # 30 tablet, 5 Refills, Maintenance, 10/13/20 16:23:00 EDT, [id number], Partial fill upon patient request if the prescription is for a schedule II opioid drug., 175.26, cm, 10/13/20 16:01:00... Start Date: 10/13/20 Status: OrderedMultivitamin Daily, 0 Refills, Maintenance, 11/17/18 14:53:09 EDT Start Date: 11/17/18 Status: OrderedNiagin supplement Niagin supplement, Refills 0, Maintenance, 10/13/20 16:06:00 EDT, Supply Start Date: 10/13/20 Status: OrderedOccupational Therapy Occupational Therapy, See Instructions, # 1 each, Refills 0, Tot. Refills 0, Maintenance, Outpatientoccupational therapy, 03/24/20 10:20:00 EST, Supply Start Date: 03/24/20 Status: OrderedProAir HFA 90 mcg/inh inhalation aerosol 2 puffs, Inhalation, Every 4 hours, PRN as needed for wheezing, # 1 each, 0 Refills, Maintenance, 07/25/20 12:35:00 EDT, Aerosol, [facility] #[id number], Partial fill upon patient request if the prescription is for a schedule II opioid drug., 2 p... Start Date: 07/25/20 Status: OrderedViagra 100 mg oral tablet 1 tablet = 100 mg, By Mouth, Daily, 1 hour before sexual activity, # 4 tablet, 5 Refills, Maintenance, 10/20/20 8:47:00 EDT, Tablet, [facility] #[id number], Partial fill upon patient request if the prescription is for a schedule II opioid drug.,... Start Date: 10/20/20 Status: Ordered Problem List Condition Effective Dates Status Health Status Informant Anemia(Confirmed) Active Asthma(Confirmed) Active Multiple closed fractures of ribs of Active left side(Confirmed) Complicated migraine(Confirmed) Active Erectile dysfunction(Confirmed) Active History of squamous cell carcinoma of Active skin(Confirmed) Hypertension(Confirmed) Active Social History Social History Type Response Smoking Status Never (less than 100 in life time) entered on: 01/05/18 Sex Male
--- OUTSIDE RECORDS SUMMARY | 2021-12-27 20:16 | XMS_ITS | Continuity of Care Document ---
:1955 Author Organization [facility] Address [address] [place] [address]- Care Team Providers Name Role Phone Gokul FINCH, Iris Smith Primary Care Physician Encounter [facility] [place] Date(s): 03/24/20 - 05/01/[address] [place] [id number] Attending Physician: Reji FINCH, Curt Allergies, Adverse [...] 03/24/20 12:03:00 EST, Route to Pharmacy Electronically, [facility], Partial fill upon patient [...] 5 Refills, Maintenance, 04/07/20 16:40:00 EST, Tablet, [facility] #[id number], Partial fill upon patient request if the prescription is for a schedule II opioid drug., 175.26, cm, 04/04/20 13:50:0... Start Date: 04/07/20 Status: OrderedIron 100 Plus By Mouth, Daily, 0 Refills, Maintenance, 09/20/19 10:31:00 EDT Start Date: 09/20/19 Status: Orderedlosartan 100 mg oral tablet 1 tablet = 100 mg, By Mouth, Daily, # 30 tablet, 5 Refills, Maintenance, 04/07/20 16:41:00 EST, Tablet, [facility] #[id number], Partial fill upon patient request if the [...]
--- OUTSIDE RECORDS SUMMARY | 2021-12-27 20:16 | XMS_ITS | Continuity of Care Document ---
:1955 Author Organization [facility] Address [address] [place] [address]- Care Team Providers Name Role Phone Gokul FINCH, Iris Smith Primary Care Physician Encounter [facility] [place] Date(s): 11/11/20 - 12/11/20 [facility] [address] [place], [place] [address] Attending Physician: Admozzie, Suzanna Admitting Physician: AdmtrSuzanna Referring Physician: Admtr, Ar8 Allergies, Adverse Reactions, Alerts Substance Reaction Severity Status Kiwi1 throat closes Active 1laryngeal swelling, resolution with benadryl Immunizations Given and Recorded Vaccine Date Status Refusal Reason pneumococcal 13-valent vaccine1 10/13/20 Given SARS-CoV-2 (COVID-19) mRNA-1273 vaccine 05/19/20 Recorded SARS-CoV-2 (COVID-19) mRNA-1273 vaccine 04/21/20 Recorded Influenza Virus Vaccine (oldterm) 12/06/19 Recorded tetanus-diphtheria toxoids (Td) 10/11/19 Recorded influenza virus vaccine, inactivated 12/11/18 Recorded influenza virus vaccine, inactivated 11/29/17 Recorded Not Given Vaccine Date Status Refusal Reason pneumococcal 13-valent vaccine2 03/24/20 Not Given Permanently Refused 1Result Comment: [id number] Comment: med not available Medications Fish Oil [...] tablet, 5 Refills, Maintenance, 09/30/20 8:49:00 EDT, [facility] #[id number], 175.26, cm, 04/09/20 7:02:00 EST, Height, 70.45, kg, 04/01/20 15:09:00 EST, Dry Weight Start Date: 09/30/20 Status: Orderedlosartan 100 mg oral tablet 0.5 tablet = 50 mg, By Mouth, Daily, # 30 tablet, 5 Refills, Maintenance, 10/13/20 16:23:00 EDT, Tablet, [facility] #[id number], Partial fill upon patient request if the prescription is for a schedule II opioid drug., 175.26, cm, 10/13/20 16:01:0... Start Date: 10/13/20 Status: OrderedMultivitamin Daily, 0 [...] 0 Refills, Maintenance, 07/25/20 12:35:00 EDT, Aerosol, [facility] #[id number], Partial fill upon patient request if the prescription is for a schedule II opioid drug., 2 p... Start Date: 07/25/20 Status: OrderedViagra 100 mg oral tablet 1 tablet = 100 mg, By Mouth, Daily, 1 hour before sexual activity, # 4 tablet, 5 Refills, Maintenance, 10/20/20 8:47:00 EDT, Tablet, [facility] #[id number], Partial fill upon patient request if the prescription is for a schedule II opioid drug.,... Start Date: 10/20/20 Status: Ordered Problem List Condition Effective Dates Status Health Status Informant Anemia(Confirmed) Active Asthma(Confirmed) Active Multiple closed fractures of ribs of Active left side(Confirmed) Complicated migraine(Confirmed) Active Erectile dysfunction(Confirmed) Active History of squamous cell carcinoma of Active skin(Confirmed) Hypertension(Confirmed) Active Liver cyst(Confirmed) Active Pulmonary nodule(Confirmed) Active Social History Social History Type Response Smoking Status Never (less than 100 in life time) entered on: 01/05/18 Sex Male
[2021-12-27] MEDS: Lidocaine HCl 2% PF/Epi 1:200 20 ML VIAL INFILTRATI (20:17)
[2021-12-27] MEDS: Amoxicillin/Potassium Clav 875 MG TABLET PO (20:43)
== END 2021-12-27 20:59 | disposition home or self-care (01) ==
PROVIDERS: Emergency Provider Emergency Medicine; PCP Internal Medicine
DX: S81.811A Laceration without foreign body, right lower leg, initial encounter (principal); W23.0XXA Caught, crushed, jammed, or pinched between moving objects, initial encounter; Y93.55 Activity, bike riding; Y92.9 Unspecified place or not applicable; Y99.9 Unspecified external cause status
CPT/HCPCS: 13121; 90471; 90715; 99282; 99284

== ENCOUNTER 2023-05-31 13:42 | Emergency (ER) | payer MEDICARE, SELFPAY ==
--- NOTE | 2023-05-31 13:45 | ECG_ITS ---
Test Reason : afib Blood Pressure : / mmHG Vent. Rate : 095 BPM Atrial Rate : 000 BPM P-R Int : 000 ms QRS Dur : 098 ms QT Int : 348 ms P-R-T Axes : 000 -06 053 degrees QTc Int : 437 ms Atrial fibrillation Moderate voltage criteria for LVH, may be normal variant ( Sokolow-Hopkins , Emile product ) Septal infarct , age undetermined Abnormal ECG When compared with ECG of 10-JAN-2021 21:27, Atrial fibrillation has replaced Sinus rhythm Vent. rate has increased BY 44 BPM Septal infarct is now Present Referred By: Ariana Mann Electronically Signed By:KLAUS EAST MD
[2023-05-31 14:04] LABS: MANUAL DIFF FLAG NO
[2023-05-31 14:05] LABS: Basophils Percent Auto 0.7 % (0-2); Eosinophils Absolute Auto 0.1 X10*3/uL (0.0-0.4); Eosinophils Percent Auto 0.9 % (0-4); Hematocrit 39.5 % (42.0-52.0); Hemoglobin 13.8 g/dl (14.0-18.0); Imm Gran Abs Auto 0.03 X10*3/uL (0.00-0.03); Imm Gran Pct Auto 0.5 % (0.0-0.4); Lymphocytes Absolute Auto 1.7 X10*3/uL (1.2-4.9); Lymphocytes Percent Auto 29.1 % (20-40); Mean Corpuscular HGB Conc 34.9 g/dl (31.0-36.0); Mean Corpuscular Hemoglobin 31.7 pg (27.0-33.0); Mean Corpuscular Volume 90.6 fL (80.0-98.0); Mean Platelet Volume 10.2 fL (9.4-12.4); Monocytes Absolute Auto 0.4 X10*3/uL (0.1-1.2); Monocytes Percent Auto 7.3 % (2-11); Neutrophils Absolute Auto 3.5 x10*3/uL (2.0-8.3); Neutrophils Percent Auto 61.5 % (45-73); Platelet Count 179 X10*3/uL (160-400); Red Blood Count 4.36 X10*6/uL (4.60-5.80); Red Cell Distribution Width 12.5 % (11.0-16.0); White Blood Count 5.7 X10*3/uL (4.8-10.8)
[2023-05-31 14:14] LABS: INTERNATIONAL NORM RATIO 0.9 (0.9-1.1); Prothrombin Time 11.4 SEC (11.1-13.3)
[2023-05-31 14:15] VITALS: BP 138/89; PULSE 88; RESP 19; TEMP 36.6; O2SAT 98; BMI 22.6
[2023-05-31 14:16] LABS: Partial Thromboplastin Time 29.3 SEC (26.0-36.8)
--- NOTE | 2023-05-31 14:16 | ED_ITS ---
HPI - Arrhythmia/Palpitations General Chief Complaint: Arrhythmia/Palpitations Stated Complaint: Afib Time Seen by Provider: 05/31/23 18:24 Related Data Previous Rx's Medication Instructions Recorded amoxicillin 875 mg-potassium 1 tab PO Q12H 10 days #20 tabs 12/27/21 clavulanate 125 mg tablet apixaban 5 mg tablet (Eliquis) 5 mg PO BID Atrial fibrillation 05/31/23 #60 tabs metoprolol succinate 25 mg 25 mg PO DAILY a fib #30 tabs 05/31/23 tablet,extended release 24 hr Allergies Allergy/AdvReac Type Severity Reaction Status Date / Time No Known Allergies Allergy Verified 05/31/23 14:15 PMFSH Past Medical History Medical History Bradycardia Hernia Hx of fracture of clavicle Hypertension Social History Social History Patient Tobacco Use Status: Never used Tobacco Smoked in Last 30 Days: No Advance Directives: No Advance Directives Information Provided: No Physical Exam 2 Vital Signs: Vital Signs: Last Vital Signs Temp 98.2 F 05/31/23 18:34 Pulse 97 05/31/23 18:37 Resp 18 05/31/23 18:37 BP 150/100 H 05/31/23 18:37 Pulse Ox 98 05/31/23 18:37 O2 Del Method Room Air 05/31/23 18:37 BMI result Body Mass Index 22.6 Course Course Course Narrative: This is a Rapid Medical Examination (RME) in triage, full HPI, ROS, assessment and plan per primary provider in the Main ED. 68 y/o male with history of HTN (on losartan/HCtZ) presents to the ER for evaluation of tachycardia. HR found to be elevated on his watch at home. Baseline HR 40s, he is a runner. He reports brief episodes of lightheadedness, no chest pain, no palpitations. EKG with new onset afib, HR 90s. CHADSVASC 2 Plan: cards consult/follow up, start a/c and discharge home vs monitor in the ER Medical Decision Making Lab Data 05/31/23 13:57 05/31/23 13:57 Labs: Lab Results 05/31/23 Range/Units 13:57 WBC 5.7 (4.8-10.8) X10*3/uL RBC 4.36 L (4.60-5.80) X10*6/uL Hgb 13.8 L (14.0-18.0) g/dl Hct 39.5 L (42.0-52.0) % MCV 90.6 (80.0-98.0) fL MCH 31.7 (27.0-33.0) pg MCHC 34.9 (31.0-36.0) g/dl RDW 12.5 (11.0-16.0) % Plt Count 179 (160-400) X10*3/uL MPV 10.2 (9.4-12.4) fL Immature Gran % (Auto) 0.5 H (0.0-0.4) % Neut % (Auto) 61.5 (45-73) % Lymph % (Auto) 29.1 (20-40) % [place] % (Auto) 7.3 (2-11) % Eos % (Auto) 0.9 (0-4) % Baso % (Auto) 0.7 (0-2) % Lymph # (Auto) 1.7 (1.2-4.9) X10*3/uL [place] # (Auto) 0.4 (0.1-1.2) X10*3/uL Eos # (Auto) 0.1 (0.0-0.4) X10*3/uL Baso # (Auto) 0.0 (0.0-0.2) X10*3/uL Abs Immat Gran (auto) 0.03 (0.00-0.03) X10*3/uL Absolute Neuts (auto) 3.5 (2.0-8.3) x10*3/uL Absolute Nucleated RBC 0.000 (0.0-0.012) X10*3/uL Nucleated RBC % (auto) 0.0 (0.0-0.2) /100WBC PT 11.4 (11.1-13.3) SEC INR 0.9 (0.9-1.1) APTT 29.3 (26.0-36.8) SEC Sodium 140 (135-145) mmol/L Potassium 3.7 (3.3-5.1) mmol/L Chloride 106 (96-108) mmol/L Carbon Dioxide 26 (22-29) mmol/L Anion Gap 12 (12-20) BUN 15 (9-16) mg/dL Creatinine 0.96 (0.5-1.4) mg/dL Estim Creat Clear Calc 72.2 Estimated GFR > 60 Random Glucose 129 H (60-115) mg/dL Calcium 9.1 D (8.4-10.2) mg/dL Magnesium 2.1 (1.6-2.6) mg/dL Total Bilirubin 0.6 (0.0-1.0) mg/dL Direct Bilirubin 0.2 (0.0-0.5) mg/dL AST 33 (5-37) U/L ALT 32 (0-40) U/L Alkaline Phosphatase 65 (39-117) U/L Troponin I High Sens < 2.7 (<3.5-35.0) ng/L Total Protein 7.0 (6.5-8.0) g/dL Albumin 4.2 (3.5-5.0) g/dL TSH 2.24 (0.32-4.0) uIU/mL Discharge Plan Discharge Clinical Impression: Atrial fibrillation Patient Disposition: Home, Self-Care Instructions: A-fib (Atrial Fibrillation) (ED) Prescriptions: New Eliquis 5 mg tablet 5 mg PO BID Qty: 60 0RF metoprolol succinate 25 mg tablet extended release 24 hr 25 mg PO DAILY Qty: 30 0RF No Action amoxicillin-pot clavulanate 875-125 mg tablet 1 tab PO Q12H 10 Days Qty: 20 0RF Referrals: Saqib Lucero MD [Physician] - 06/01/23
[2023-05-31 14:19] LABS: Alanine Aminotransferase 32 U/L (0-40); Albumin Level 4.2 g/dL (3.5-5.0); Alkaline Phosphatase 65 U/L (39-117); Anion Gap 12 (12-20); Aspartate Amino Transferase 33 U/L (5-37); Bilirubin Direct 0.2 mg/dL (0.0-0.5); Bilirubin Total 0.6 mg/dL (0.0-1.0); Blood Urea Nitrogen 15 mg/dL (9-16); Calcium 9.1 mg/dL (8.4-10.2); Carbon Dioxide 26 mmol/L (22-29); Chloride 106 mmol/L (96-108); Creatinine Clr Calc Pharmacy 72.2; Estimated Glomerular Filt Rate > 60; Glucose Random 129 mg/dL (60-115); Magnesium 2.1 mg/dL (1.6-2.6); Potassium 3.7 mmol/L (3.3-5.1); Sodium 140 mmol/L (135-145)
[2023-05-31 14:26] LABS: Troponin-I High Sensitivity < 2.7 ng/L (<3.5-35.0)
[2023-05-31 14:53] LABS: Thyroid Stimulating Hormone 2.24 uIU/mL (0.32-4.0)
[2023-05-31 18:26] VITALS: BP 151/107; PULSE 87; RESP 18; O2SAT 97
[2023-05-31 18:34] VITALS: TEMP 36.8
[2023-05-31 18:37] VITALS: BP 150/100; PULSE 97; RESP 18; O2SAT 98
--- NOTE | 2023-05-31 18:37 | ED_ITS ---
HPI - Arrhythmia/Palpitations General Chief Complaint: Arrhythmia/Palpitations Stated Complaint: Afib Time Seen by Provider: 05/31/23 18:24 History of Present Illness HPI narrative: Patient is a 68-year-old male no significant past medical history patient has an [employer] watch. The watch indicated to him that he was in atrial fibrillation. He has no symptoms. He went to urgent Care was subsequently sent here. He did not have any chest pain or shortness breath no dizziness. No nausea no vomiting. He would not come into the ED unless the watch told him he had atrial fibrillation he contacted his sister who is a nurse practitioner and then told him that he needs to come in. Denies noticing any blood in stool. No change in sleep pattern. No change in weight. There has no chest pain. Patient is from home. No fever no chills. No history of recreational drug use. Patient drinks alcohol only on a social basis. Related Data Previous Rx's Medication Instructions Recorded amoxicillin 875 mg-potassium 1 tab PO Q12H 10 days #20 tabs 12/27/21 clavulanate 125 mg tablet apixaban 5 mg tablet (Eliquis) 5 mg PO BID Atrial fibrillation 05/31/23 #60 tabs metoprolol succinate 25 mg 25 mg PO DAILY a fib #30 tabs 05/31/23 tablet,extended release 24 hr Allergies Allergy/AdvReac Type Severity Reaction Status Date / Time No Known Allergies Allergy Verified 05/31/23 14:15 Review of Systems 2 Review of Systems: No chest pain or shortness breath no dizziness no nausea no vomiting Yes all other systems are reviewed and are negative [facility] Past Medical History Medical History Bradycardia Hernia Hx of fracture of clavicle Hypertension Social History Social History Patient Tobacco Use Status: Never used Tobacco Smoked in Last 30 Days: No Advance Directives: No Advance Directives Information Provided: No Physical Exam 2 Vital Signs: Vital Signs: Last Vital Signs Temp 98.2 F 05/31/23 18:34 Pulse 97 05/31/23 18:37 Resp 18 05/31/23 18:37 BP 150/100 H 05/31/23 18:37 Pulse Ox 98 05/31/23 18:37 O2 Del Method Room Air 05/31/23 18:37 BMI result Body Mass Index 22.6 Appearance: Alert. Oriented X3. No acute distress. Eyes: Pupils equal, round and reactive to light. ENT: Pharynx normal. Neck: Normal inspection. Neck supple. No lymph nodes noted. No crepitus CVS: Irregularly irregular Respiratory: No respiratory distress. Breath sounds normal. No Wheezing. No rales Abdomen: Soft and nontender. No rigidity. No distention. good BS x4 Skin: Skin warm and dry. Normal skin color. Normal skin turgor. Extremities: No lower extremity edema. Neurovascular intact to all extremities. No Lacerations. No Rash Neuro: Oriented X 3. No motor deficit. No sensory deficit. Moving all extermities. No slurred speech Medical Decision Making Medical Decision Making [facility] Narrative: My interpretation of patient's EKG shows an atrial fibrillation pattern heart rate is 90 QRS QTC normal there is no acute ST segment elevation. Patient's troponin is negative. Potassium is normal. TSH is normal no evidence for hypo hyperthyroid hemoglobin is 13 no evidence for anemia. Patient troponin was negative. Patient's Victorino Vasc 2 score is a 2 given patient is 68 years old has a history of hypertension. Case consulted by Cardiology. Will see patient tomorrow. Recommended to start patient on Toprol-XL 25 mg q.d.. Also on Eliquis 5 mg PID.. First dose of medication was given. A script for 30 days' supply was given. Differential Diagnosis Differential Diagnoses: The differential diagnosis associated with the presentation includes Atrial fibrillation, hypothyroid Admission/Observation Consideration of admission/observation: Escalation of care including admission/observation considered Consult Healthcare Provider Management of the patient was discussed with: Marketing Co Op (Cardiology) Lab Data [facility] Lab Attestation statement: I reviewed the patient's lab results. 05/31/23 13:57 05/31/23 13:57 Labs: Lab Results 05/31/23 Range/Units 13:57 WBC 5.7 (4.8-10.8) X10*3/uL RBC 4.36 L (4.60-5.80) X10*6/uL Hgb 13.8 L (14.0-18.0) g/dl Hct 39.5 L (42.0-52.0) % MCV 90.6 (80.0-98.0) fL MCH 31.7 (27.0-33.0) pg MCHC 34.9 (31.0-36.0) g/dl RDW 12.5 (11.0-16.0) % Plt Count 179 (160-400) X10*3/uL MPV 10.2 (9.4-12.4) fL Immature Gran % (Auto) 0.5 H (0.0-0.4) % Neut % (Auto) 61.5 (45-73) % Lymph % (Auto) 29.1 (20-40) % Weber % (Auto) 7.3 (2-11) % Eos % (Auto) 0.9 (0-4) % Baso % (Auto) 0.7 (0-2) % Lymph # (Auto) 1.7 (1.2-4.9) X10*3/uL Weber # (Auto) 0.4 (0.1-1.2) X10*3/uL Eos # (Auto) 0.1 (0.0-0.4) X10*3/uL Baso # (Auto) 0.0 (0.0-0.2) X10*3/uL Abs Immat Gran (auto) 0.03 (0.00-0.03) X10*3/uL Absolute Neuts (auto) 3.5 (2.0-8.3) x10*3/uL Absolute Nucleated RBC 0.000 (0.0-0.012) X10*3/uL Nucleated RBC % (auto) 0.0 (0.0-0.2) /100WBC PT 11.4 (11.1-13.3) SEC INR 0.9 (0.9-1.1) APTT 29.3 (26.0-36.8) SEC Sodium 140 (135-145) mmol/L Potassium 3.7 (3.3-5.1) mmol/L Chloride 106 (96-108) mmol/L Carbon Dioxide 26 (22-29) mmol/L Anion Gap 12 (12-20) BUN 15 (9-16) mg/dL Creatinine 0.96 (0.5-1.4) mg/dL Estim Creat Clear Calc 72.2 Estimated GFR > 60 Random Glucose 129 H (60-115) mg/dL Calcium 9.1 D (8.4-10.2) mg/dL Magnesium 2.1 (1.6-2.6) mg/dL Total Bilirubin 0.6 (0.0-1.0) mg/dL Direct Bilirubin 0.2 (0.0-0.5) mg/dL AST 33 (5-37) U/L ALT 32 (0-40) U/L Alkaline Phosphatase 65 (39-117) U/L Troponin I High Sens < 2.7 (<3.5-35.0) ng/L Total Protein 7.0 (6.5-8.0) g/dL Albumin 4.2 (3.5-5.0) g/dL TSH 2.24 (0.32-4.0) uIU/mL Independent Interpretation I performed an independent interpretation of an: EKG (Relation pattern heart rate is 90 QRS QTC within normal limits is no acute ST segment elevation) Chronic Conditions Patient?s care impacted by: Hypertension Discharge Plan Discharge Clinical Impression: Atrial fibrillation Patient Disposition: Home, Self-Care Instructions: A-fib (Atrial Fibrillation) (ED) Prescriptions: New Eliquis 5 mg tablet 5 mg PO BID Qty: 60 0RF metoprolol succinate 25 mg tablet extended release 24 hr 25 mg PO DAILY Qty: 30 0RF No Action amoxicillin-pot clavulanate 875-125 mg tablet 1 tab PO Q12H 10 Days Qty: 20 0RF Referrals: Saqib Lucero MD [Physician] - 06/01/23
--- OUTSIDE RECORDS SUMMARY | 2023-05-31 18:51 | XMS_ITS | Continuity of Care Document ---
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 Name Role Phone Philip FINCH, Sarah Toth Primary Care Physician [phone] Encounter [facility] [place] Date(s): 04/26/23 - 05/26/23 [facility] [address] [place] [phone]- Allergies, Adverse Reactions, Alerts Substance Reaction Severity Status Kiwi 1 throat closes Active 1laryngeal swelling, resolution with benadryl Immunizations Given and Recorded Vaccine Date Status Refusal Reason influenza virus vaccine, inactivated 11/08/21 Carl rded influenza virus vaccine, inactivated 01/05/21 Carl rded influenza virus vaccine, inactivated 12/11/18 Carl rded influenza virus vaccine, inactivated 11/29/17 Carl rded SARS-CoV-2 (COVID-19) mRNA-1273 vaccine 07/17/21 R ecorded SARS-CoV-2 (COVID-19) mRNA-1273 vaccine 01/05/21 R ecorded SARS-CoV-2 (COVID-19) mRNA-1273 vaccine 05/19/20 R ecorded SARS-CoV-2 (COVID-19) mRNA-1273 vaccine 04/21/20 R ecorded pneumococcal 13-valent vaccine 1 10/13/20 Given Influenza Virus Vaccine (oldterm) 12/06/19 Recorde d tetanus-diphtheria toxoids (Td) 10/11/19 Recorded 1Result Comment: [id number] Medications Fish Oil By Mouth, 0 Refills, Maintenance, 11/17/18 14:53:18 EDT Start Date: 11/17/18 Status: Ordered Fluorodex 0 Refills, Maintenance, 10/13/20 16:08:00 EDT, Partial fill upon patient request if the prescription is for a schedule II opioid drug. Start Date: 10/13/20 Status: Ordered garlic oral tablet 0 Refills, Maintenance, 04/02/19 9:59:00 EST Start Date: 04/02/19 Status: Ordered hydrochlorothiazide 12.5 mg oral tablet 1 tablet, By Mouth, Daily, # 90 tablet, 3 Refills, Maintenance, 11/02/22 11:04:00 EDT, [facility] #[id number], 173.06, cm, 11/09/21 16:30:00 EDT, Height Start Date: 11/02/22 Status: Ordered losartan 100 mg oral tablet 1 tablet, By Mouth, Daily, # 90 tablet, 3 Refills, Maintenance, 05/04/23 17:17:00 EST, [facility] #[id number], 173.06, cm, 11/09/21 16:30:00 EDT, Height Start Date: 05/04/23 Status: Ordered Multivitamin Daily, 0 Refills, Maintenance, 11/17/18 14:53:09 EDT Start Date: 11/17/18 Status: Ordered Niagin supplement Niagin supplement, Refills 0, Maintenance, 10/13/20 16:06:00 EDT, Supply Start Date: 10/13/20 Status: Ordered Occupational Therapy Occupational Therapy, See Instructions, # 1 each, Refills 0, Tot. Refills 0, Maintenance, Outpatient occupational therapy, 03/24/20 10:20:00 EST, Supply Start Date: 03/24/20 Status: Ordered ProAir HFA 90 mcg/inh inhalation aerosol 2 puffs, Inhalation, Every 4 hours, PRN as needed for wheezing, # 1 each, 0 Refills, Maintenance, 07/25/20 12:35:00 EDT, Aerosol, [facility] #[id number], Partial fill upon patient request if theprescription is for a schedule II opioid drug., 2 p... Start Date: 07/25/20 Status: Ordered tadalafil 20 mg oral tablet 1 tablet = 20 mg, By Mouth, Daily, PRN as needed, 1 hour before sexual activity, # 30 tablet, 3 Refills, Maintenance, 06/19/22 11:11:00 EDT, Tablet, [facility], Partial fill upon patient request if the prescription is for a schedule II o... Start Date: 06/19/22 Status: Ordered Viagra 100 mg oral tablet 1 tablet = 100 mg, By Mouth, Daily, 1 hour before sexual activity, # 4 tablet, 5 Refills, Maintenance, 10/20/20 8:47:00 EDT, Tablet, [facility][id number], Partial fill upon patient request if the prescription is for a schedule II opioid drug.,... Start Date: 10/20/20 Status: Ordered Problem List Condition Confirmation Course Effective Dates Status Health St atus Informant Anemia Confirmed Active Asthma Confirmed Active Multiple closed fractures of ribs of left side Confirmed Active Complicated migraine Confirmed Active Erectile dysfunction Confirmed Active Family history of lung cancer Confirmed Active History of squamous cell carcinoma of skin Confirmed Active Hypertension Confirmed Active Liver cyst Confirmed Active Pulmonary nodule Confirmed Active Social History Social History Type Response Smoking Status Never (less than 100 in lifetime) entered on: 01/05/18 Sex Male Patient Care team information Care Team Personnel Name: Philip FINCH, Sarah Toth Position: [facility] Physician - Primary Care Member Role: PCP Address: Address: [address] [place] [address] [place] [address]- Name: Chidi WAYNE, Tiny Mcmullen Position: [facility] RN Member Role: Primary Care Nurse Care Team Related Persons Name: MIHIR ARAUZ Name: ADAM MARTÍNEZ Address: [place] [address]
[2023-05-31] MEDS: Metoprolol Succinate ER 25 MG TAB.ER.24H PO (19:15)
[2023-05-31] MEDS: Apixaban 5 MG TABLET PO (19:15)
[2023-05-31 19:19] VITALS: BP 145/99; PULSE 88; RESP 17; TEMP 36.8; O2SAT 99
== END 2023-05-31 19:21 | disposition home or self-care (01) ==
PROVIDERS: Physician Assistant; Emergency Provider Emergency Medicine Emergency Medical Services
DX: I48.91 Unspecified atrial fibrillation (principal); I10 Essential (primary) hypertension
CPT/HCPCS: 36415; 80048; 80076; 83735; 84443; 84484; 85025; 85610; 85730; 93005; 99283; 99285

== ENCOUNTER → 2023-05-31 13:45 | Outpatient (BNV) | payer MEDICARE, BC, SELFPAY | PROVIDERS: Visit Provider Internal Medicine Cardiovascular Disease | DX: I48.91 Unspecified atrial fibrillation (principal) | CPT/HCPCS: 93010 ==

== ENCOUNTER 2023-06-01 12:16 | Outpatient (AMB) | payer MEDICARE, SELFPAY ==
--- NOTE | 2023-06-01 12:23 | MHC.OFFVIS ---
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 He was referred from the emergency room yesterday. Patient says yesterday his watch told him that he was in atrial fibrillation therefore he ended up going to the emergency room. In the emergency room he was noted to be in atrial fibrillation confirmed with adequate rate control. He says he did not have any other symptoms besides the watch telling him that he was in atrial fibrillation. However he did not exercises usual level yesterday. The day before yesterday he was doing well and exercise to his full extent and had no issues. This morning also went out with the dog hiking up a mountain and walk 2 miles without any symptoms. He comes in today he is noticed to be in sinus rhythm. He was prescribed yesterday metoprolol which has not started taking. He is also prescribed Eliquis which is not started taking. He said for the last 8 years he has had hypertension and this was diagnose while he was in [place] and since then he is modified his lifestyle lot with lot less salt intake and is taking his medications. Blood pressure is generally well controlled and usually only measured in the morning and systolic blood pressure in the 110 range. He denies any symptoms of exertional chest pain or shortness of breath. Denies any symptoms of palpitations, lightheadedness, syncope. He comes here for further discussion about management of atrial fibrillation. He used to drink a cup of coffee every day but has started to decided not to drink any caffeine today. He also drinks alcohol in small amounts over the weekend. 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 Has daytime somnolence PFSH Medical History (Updated 06/01/23 @ 16:22 by Saqib Lucero MD) Paroxysmal atrial fibrillation Bradycardia Hernia Hypertension Surgical History Hx of arthroscopic knee surgery Hx of hernia repair Hx of fracture of clavicle Family History Father No problems noted. Mother No problems noted. Social History Patient Tobacco Use Status: Never used Tobacco Review of Systems Const Denies chills, Denies daytime sleepiness, Denies fatigue, Denies fever(s), Denies frequent falls, Denies poor appetite, Denies snoring, Denies stops breathing during sleep, Denies weakness, Denies weight gain and Denies weight loss Eyes Denies loss of vision ENT Denies dizziness and Denies hearing loss Card Denies chest pain, Denies claudication, Denies leg edema, Denies lightheadedness, Denies palpitations, Denies dyspnea, Denies dyspnea on exertion and Denies orthopnea Resp Denies cough, Denies excessive phlegm production, Denies dyspnea, Denies dyspnea on exertion, Denies snoring and Denies wheezing GI Denies abdominal pain, Denies hematochezia, Denies change in bowel habits, Denies nausea and Denies vomiting Denies dysuria and Denies urinary frequency Musc Denies arthralgias, Denies muscle weakness, Denies numbness and Denies other (frequent falls) Skin/Breast Denies nail changes and Denies rash Neuro Denies Abnormal speech present, Denies dizziness, Denies frequent falls, Denies loss of vision, Denies memory loss, Denies numbness and Denies weakness Psych Denies depression and Denies memory loss Endo Denies fatigue and Denies palpitations Jamie/Lymph Reports easy bruising and Reports other (anemia) Aller/Immun Denies wheezing Physical Exam Vital Signs: Last Vital Signs Pulse 50 06/01/23 12:24 BP 120/74 06/01/23 12:24 BMI result Body Mass Index 23.4 Const General: cooperative, comfortable, no acute distress, alert, awake, Physically active and well groomed Nutritional Appearance: thin Orientation/consciousness: patient oriented x3 Limitations: no limitations HEENT Head: Yes normocephalic and Yes atraumatic Neck Neck: Yes trachea midline, Yes supple and Yes no JVD Resp Effort & Inspection: normal respiratory effort Auscultation: clear to auscultation bilaterally Cardio Jugular venous distension: no JVD Palpation: normal PMI Rate: regular rate Rhythm: regular rhythm Heart sounds: S1 normal heart sound present, S2 normal heart sound present, no click, no gallops, no murmurs and no rubs GI Auscultation: normal bowel sounds Skin General skin exam: no rashes or lesions noted Neuro General: patient oriented x3 and no focal motor deficits Speech: No Abnormal speech present Extrem General: Yes no clubbing, cyanosis or edema Psych Appearance: grossly normal Office Procedures EKG Details: EKG shows sinus bradycardia 50 beats per minute with LVH criteria with small Q-waves in the lateral wall which could represent LV hypertrophy [id number], Complete Assessment & Plan Assessment & Plan (1) Paroxysmal atrial fibrillation: Code(s): I48.0 - Paroxysmal atrial fibrillation Plan: Incidental finding of paroxysmal atrial fibrillation this elderly gentleman without any obvious symptoms although he was not exercising when he was in atrial fibrillation. Currently he remains symptom-free and today noticed to be in sinus rhythm. His heart rate at rest says his in the upper 40s or 50s given his good overall cardiovascular shape. I would avoid using metoprolol at this point time per. I had a very detailed discussion about pathophysiology of atrial fibrillation management. Will pursue rhythm control approach. Advised to monitor for atrial fibrillation through his watch. His blood pressure is currently well optimized, see below. CHADSVASc score of 2 and strongly recommend him to be started on oral anticoagulation therapy. Will start him on Eliquis 5 mg b.i.d.. He understands the rationale and will burr picker his prescriptions. Will obtain further testing with home sleep study to rule out obstructive sleep apnea, echocardiogram to evaluate for structural heart abnormalities and Holter monitor to assess for any presence of atrial fibrillation. He understands and agrees. Follow up in the clinic after that. Avoidance of stimulants such as caffeine and alcohol was discussed. Stress mitigation strategies was discussed. (2) Hypertension: Code(s): I10 - Essential (primary) hypertension Plan: Longstanding hypertension which is currently well optimized advised to monitor blood pressure throughout the day at different times a day. Continue current therapy. Avoid metoprolol therapy given his baseline bradycardia. Will follow with him Coding Level of Care Code New Pt Level 4 (92935) Diagnoses Paroxysmal atrial fibrillation I48.0 Hypertension I10 CPT Codes EKG - CPT: 25822-[id number], Complete ([id number])
[2023-06-01 12:24] VITALS: BP 120/74; PULSE 50; BMI 23.4
== END 2023-06-01 13:20 | disposition home or self-care (01) ==
PROVIDERS: Visit Provider Internal Medicine Cardiovascular Disease
DX: I48.0 Paroxysmal atrial fibrillation (principal); I10 Essential (primary) hypertension
CPT/HCPCS: 93010; 99213

== ENCOUNTER → 2023-06-01 12:16 | Outpatient (BNVA) | payer MEDICARE, SELFPAY | PROVIDERS: Visit Provider Internal Medicine Cardiovascular Disease | DX: I48.0 Paroxysmal atrial fibrillation (principal); I10 Essential (primary) hypertension | CPT/HCPCS: 93005; 99212 ==

== ENCOUNTER → 2023-06-28 10:53 | Outpatient (REF) | payer MEDICARE, SELFPAY ==
--- NOTE | 2023-06-28 10:56 | CA_ITS ---
Transthoracic Echocardiogram Patient (Last, First, Middle): Kelechi Cano G Gender: Male Date of : 1955 Age: 68 Procedure Date: 06/28/2023 Procedure Type: Transthoracic Echocardiogram Location: OP Height: 175.26 cm Weight: 68.95 kg BSA: 1.84 m2 Heart Rate: bpm BP: 117 / 71 mmHg Care Specialist: NADER Referring MD: Saqib Lucero MD Symptoms: I48.0 - Paroxysmal atrial fibrillation Study Quality: Adequate ECG Rhythm: Sinus Conclusions: - The left ventricular systolic function is normal. The calculated ejection fraction is 65% by biplane method. - The apical septum is hypokinetic. - Moderately increased right ventricular cavity size. - There is mild aortic valve regurgitation. - There is mild tricuspid valve regurgitation. Findings Left Ventricle Normal left ventricular cavity size. There is normal left ventricular wall thickness. The left ventricular systolic function is normal. The calculated ejection fraction is 65% by biplane method. There is no evidence of regional wall motion abnormalities. Diastolic function is normal for age. LV peak GLS -22.3%. Wall Motion Rest Echo Findings The apical septum is hypokinetic. Right Ventricle Moderately increased right ventricular cavity size. There is normal right ventricular systolic function. Atria Both atria are normal in size. Aortic Valve There is a normal trileaflet aortic valve. There is mild calcification of the aortic valve. There is no aortic valve stenosis. There is mild aortic valve regurgitation. Mitral Valve The mitral valve appears normal. There is trace mitral valve regurgitation. There is no mitral valve stenosis. Pulmonic Valve The pulmonic valve is likely normal. There is trace pulmonic valve regurgitation. Tricuspid Valve Normal tricuspid valve structure. There is mild tricuspid valve regurgitation. There is no evidence of pulmonary hypertension. Great Vessels The asc aorta is normal in size. Venous The inferior vena cava is mildly dilated and collapses greater than 50% with inspiration. Pericardium/Pleural There is no evidence of pericardial effusion. Prior Study Comparison No prior study available for comparison. Measurements 2D Linear Measurements IVSd: 0.97 0.6-0.9/0.6-1.0 cm LVIDd: 4.82 3.9-5.3/4.2-5.9 cm LVIDd Index: 2.62 2.4-3.2/2.2-3.1 cm/m2 LVIDs: 3.05 2.0-3.6 cm LVPWd: 0.96 0.7-1.1 cm LA Diam: 3.40 2.7-3.8/3.0-4.0 cm LAIDs Index: 1.85 1.5-2.3 cm/m2 LV Mass: 203.82 67-162/88-224 g LV Mass Index: 110.77 43-95/49-115 g/m2 LVOT Diam: 2.30 3.0+(-)1.3 cm 2D Systolic Function EF 4C: 63.80 >55% EF 2C: 68.20 >55% EF BiP: 64.90 >55% Mitral Valve MV Pk E: 0.81 MV PK A: 0.72 MV Decel Time: 231.00 E/A: 1.10 E'Lateral: 8.05 E'Medial: 5.44 E/E' Med: 14.80 E/E' Lat: 10.00 PHT: 68.00 MVA PHT: 3.24 Decel Collier: 3.49 Aortic Valve AoV Pk Angel: 1.53 AoV Mn Angel: 0.94 AoV VTI: 0.43 AoV Pk Grad: 9.00 Aov Mn Grad: 4.00 JEANNA Cont.VTI: 2.45 LVOT LVOT Pk Angel: 1.15 LVOT Mn Angel: 0.67 LVOT VTI: 0.25 LVOT Pk Grad: 5.00 LVOT Mn Grad: 2.00 LVOT Diam: 2.30 LVOT Area: 4.15 Diastolic Function MV Pk E: 0.81 MV Pk A: 0.72 E/A: 1.10 E'Medial: 5.44 E/E' Med: 14.80 E' Laterial: 8.05 E/E' Lat: 10.00 Right Ventricle TAPSE (mm): 32.60 TVS' Angel: 14.10 Tricuspid Valve TR Pk Angel: 2.40 TR Pk Grad: 23.00 RA Press: 8.00 RVSP: 31.00 Great Vessels Aorta Sinus of Valsalva: 4.41 2.0-3.[address] Ridge: 2.92 1.7-3.4 cm Ao Asc: 3.40 2.1-3.4 cm Updated in Other Vendor System with Status of Final Negro Zhou MD electronically signed on 06/30/2023 11:02:09 AM with status of Final
--- NOTE | 2023-06-28 10:56 | HM_ITS ---
* Total monitoring time 7 days. * Underlying rhythm is sinus with an average rate of 50/Min. Range 30 to 135/Min. About 86% of the time, rate < 60/Min. * Rare supraventricular ectopy. Short runs noted. Up to 49 beats. Could be atrial tachycardia. * Evidence of junctional rhythm noted -around 05:00 and 09:00. * Rare ventricular ectopy. One short run of 4 beats. * No significant pauses or AV blocks. * Patient marker used 4 times, in association with sinus rhythm, sinus tachycardia, supraventricular and ventricular ectopy. * No clear symptoms mentioned in diary. MTDD
== END ==
LOC: HO.CARD 10:53
PROVIDERS: Visit Provider Internal Medicine Cardiovascular Disease
DX: I48.0 Paroxysmal atrial fibrillation (principal)
CPT/HCPCS: 93242; 93306; 93356

== ENCOUNTER → 2023-06-28 10:56 | Outpatient (BNV) | payer MEDICARE, SELFPAY | PROVIDERS: Visit Provider Internal Medicine | DX: I49.3 Ventricular premature depolarization (principal) | CPT/HCPCS: 93244; 93306; 93356 ==

== ENCOUNTER → 2023-07-06 11:03 | Outpatient (REF) | payer MEDICARE, SELFPAY | LOC: HO.SL 11:03 | PROVIDERS: Visit Provider Internal Medicine Cardiovascular Disease | DX: G47.33 Obstructive sleep apnea (adult) (pediatric) (principal); R40.0 Somnolence | CPT/HCPCS: 95806 ==

== ENCOUNTER → 2023-07-06 11:24 | Outpatient (BNV) | payer MEDICARE, SELFPAY | PROVIDERS: Visit Provider Internal Medicine | DX: G47.33 Obstructive sleep apnea (adult) (pediatric) (principal) | CPT/HCPCS: 95806 ==

== ENCOUNTER 2023-07-14 09:46 | Outpatient (AMB) | payer MEDICARE, SELFPAY ==
[2023-07-14 09:49] VITALS: BP 160/78; PULSE 44; BMI 24.5
--- NOTE | 2023-07-14 09:49 | A.OFFVIS_ITS ---
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 Today he reports that he has been feeling well since his last visit in May. He denies any heart palpitations. No chest discomfort at rest or with activity. No shortness of breath, lightheadedness, presyncope, syncope, falls, PND, orthopnea or edema. He reports good activity tolerance. He exercises routinely which he says he tolerates well. Takes meds as directed. No bleeding issues reported. [facility] Medical History (Updated 07/14/23 @ 10:55 by Christy Miranda, DONATO-C) Paroxysmal atrial fibrillation Bradycardia Hernia Hypertension Surgical History Hx of arthroscopic knee surgery Hx of hernia repair Hx of fracture of clavicle Family History Father No problems noted. Mother No problems noted. Social History Patient Tobacco Use Status: Never used Tobacco Review of Systems Const All systems reviewed & are unremarkable except as noted in HPI and below ENT Denies dizziness Card Denies chest pain, Denies chest pain at rest, Denies chest pain with activity, Denies rapid heart rate, Denies pedal edema, Denies edema, Denies leg edema, Denies lightheadedness, Denies palpitations, Denies dyspnea, Denies dyspnea on exertion and Denies orthopnea Resp Details: Naps in daytime Denies cough, Denies dyspnea and Denies dyspnea on exertion GI Denies hematochezia and Denies change in stool character Musc Details: just underwent knee surgery - still recovering Denies abnormal gait, Denies limited range of motion, Denies muscle cramps, Denies muscle weakness, Denies numbness, Denies radiating pain into limb, Denies stiffness and Denies tingling Neuro Denies abnormal gait, Denies dizziness, Denies numbness and Denies tingling Endo Denies palpitations Physical Exam Vital Signs: Last Vital Signs Pulse 44 L 07/14/23 09:49 BP 160/78 H 07/14/23 09:49 BMI result Body Mass Index 24.5 Const General: cooperative, healthy appearing, comfortable and no acute distress Orientation/consciousness: patient oriented x3 Neck Neck: Yes normal visual inspection and Yes no JVD Resp Effort & Inspection: normal respiratory effort Auscultation: clear to auscultation bilaterally, no crackles, no rales, no rhonchi and no wheezes Cardio Jugular venous distension: no JVD Rate: regular rate Rhythm: regular rhythm Heart sounds: S1 normal heart sound present, S2 normal heart sound present, no murmurs and no rubs Neuro General: patient oriented x3 Extrem General: Yes normal to inspection, No no pedal edema and No calf tenderness Psych Appearance: grossly normal Mental Status: mental status grossly normal Speech and movement: Normal speech and movement present Assessment & Plan Assessment & Plan (1) Paroxysmal atrial fibrillation: Code(s): I48.0 - Paroxysmal atrial fibrillation Category: Medical Plan: Newer finding of paroxysmal atrial fibrillation. His heart rate was controlled and he was not put on any rate slowing agents. He was put on Eliquis for anticoagulation. A echocardiogram done 06/28/2023 shows EF 65%, apical hypokinetic, moderate increase in the RV size. A Holter monitor done 06/28/2023 for 7 days shows sinus rhythm with average heart rate 50, heart rate range 30 to 135, 86% of the time heart rate less than 60, rare SVE with short runs, longest 43 beats, evidence of junctional rhythm noted. A sleep study was done on 06/28 showing moderately severe sleep apnea. Test results reviewed with him in detail. Pulse is regular on examination at this time with no concern for current AFib. His resting heart rate is slow so he will remain off rate slowing agents. No bleeding issues reported, continue Eliquis. For his sleep apnea will refer to pulmonology for further evaluation and treatment. Copy of test results given to him. Continue activity as tolerated. Nuclear stress test previously ordered to evaluate for ischemia based on wall motion abnormality seen on echo. Plan to call him with results Cardiology follow-up 3 months, sooner if needed. (2) Hypertension: Code(s): I10 - Essential (primary) hypertension Category: Medical Plan: Elevated at this visit. He reports some anxiety over hearing his test results. Home blood pressures are monitored and they are typically in the normal range with systolic in the 120s. He continues on hydrochlorothiazide and losartan. No med changes made at this time. Reviewed low-salt diet. Blood pressure to be rechecked at next visit. (3) Sleep apnea: Code(s): G47.30 - Sleep apnea, unspecified Category: Medical Plan: New finding of moderately severe sleep apnea. Patient was very surprised to hear this finding. He does admit to snoring and daytime sleepiness. He takes naps daily. 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 Informed how sleep apnea can contribute to atrial fibrillation and the right ventricular enlargement that was seen on echocardiogram. (4) Bradycardia: Code(s): R00.1 - Bradycardia, unspecified Category: Medical Plan: History of bradycardia. Patient is physically fit and exercises routinely including running. (5) Abnormal echocardiogram: Code(s): R93.1 - Abnormal findings on diagnostic imaging of heart and coronary circulation Category: Medical Plan: As above Plan Time spent on chart review, documentation, interview and assessment Orders: Referrals Pulmonary Medicine Referral G47.30 - Sleep apnea, unspecified, R93.1 - Abnormal findings on diagnostic imaging of heart and coronary circulation Coding Level of Care Code Est Pt Level 4 (12336) Diagnoses Paroxysmal atrial fibrillation I48.0 Hypertension I10 Sleep apnea G47.30 Bradycardia R00.1 Abnormal echocardiogram R93.1 Time Spent (min) 36
== END 2023-07-14 10:38 | disposition home or self-care (01) ==
PROVIDERS: Visit Provider Nurse Practitioner Family
DX: I48.0 Paroxysmal atrial fibrillation (principal); I10 Essential (primary) hypertension; G47.30 Sleep apnea, unspecified; R00.1 Bradycardia, unspecified; R93.1 Abnormal findings on diagnostic imaging of heart and coronary circulation
CPT/HCPCS: 99214

== ENCOUNTER → 2023-07-14 09:46 | Outpatient (BNVA) | payer MEDICARE, SELFPAY | PROVIDERS: Visit Provider Nurse Practitioner Family ==

== ENCOUNTER → 2023-08-19 08:24 | Outpatient (REF) | payer MEDICARE, SELFPAY ==
--- NOTE | ~2023-08-19 | NM_ITS ---
EXERCISE MYOCARDIAL PERFUSION STUDY INDICATION: Atrial fibrillation, assess for coronary disease and ischemia TECHNIQUE: The patient was brought in for an exercise perfusion study on 08/19/2023. Patient performed exercise as per [place] protocol and was injected 25 mCi of sestamibi once target heart rate was achieved. Images were obtained using the SPECT gamma camera interlaced with the gating device. Images were obtained in supine position. Resting perfusion study was performed on 08/24/2023. Patient was administered 25 mCi of sestamibi intravenously at rest. Images were then obtained in supine position. Images were processed with the software and compared side to side in short axis, horizontal long axis and vertical long axis views. Total DLP 106mGy-cm. FINDINGS: Raw images were reviewed. Arms by the patient's side. The stress perfusion study showed mildly diminished tracer uptake in the basal portion along the inferior wall, inferoseptal wall; anterolateral wall; apex. There is some improvement with CT attenuation correction and hence could've components of diaphragmatic attenuation artifact as well as soft tissue attenuation artifact. The gated study shows normal LV systolic function with calculated LVEF of 60%. LV cavity is normal in size. The gated study shows basal inferior/inferoseptal hypokinesis; apical hypokinesis. Resting study shows reduced uptake in the basal part of inferior/inferoseptal wall but otherwise unremarkable. Improvement with CT attenuation correction. Gating at rest reveals basal inferior/inferoseptal hypokinesis but otherwise unremarkable; gated LVEF 54%. The findings are consistent with basal inferior defect with some reversible/fixed components. Mild apical reversible defect. NM/NM cardiolite stress test IMPRESSION: 1. Myocardial perfusion imaging study shows possible ischemia or infarct pattern in the basal inferior/inferoseptal wall; mild ischemia at the apex. Cannot exclude components of diaphragmatic attenuation artifact as well as soft tissue attenuation artifact. 2. Gated LVEF is 60% during stress and 54% during rest. 3. Transient ischemic dilatation not present. EKG component of the test reported separately.
--- NOTE | 2023-08-19 08:27 | CA_ITS ---
Acquisition Time: 2023-08-19 08:34:23 Total Exercise Time: 00:12:16 Test Indications: ABN ECHO AFIB Medications: ELOQUIS HCTZ LOSARTAN TADAFIL Protocol: SUSHANT Max HR: 155 BPM 101% of Pred: 152 BPM Max BP: 202/084 mmHG Max Work Load: 13.8 METS Exercise stress test with exercise 12 min 16 sec of Sushant protocol, achieving 103% MPHR, without anginal symptoms, with isolated PACs, PVCs and a few ventricular cuplets, with mildly elevated BP at baseline and hypertensive response to exercise with max BP 202/84 ( he did not take any of his am meds yet today), without EKG changes meeting criteria for ischemia. In recovery his BP came down to 146/74. Nuclear images pending. Test reviewed with Dr Mackenzie. Referred By: Saqib Lucero Overread By: MELIDA HERNANDEZ
== END ==
LOC: HO.CARD 08:24
PROVIDERS: PCP Internal Medicine; Visit Provider Internal Medicine Cardiovascular Disease
DX: I48.0 Paroxysmal atrial fibrillation (principal); R00.1 Bradycardia, unspecified
CPT/HCPCS: 78452; 93017; A9500

== ENCOUNTER → 2023-08-19 08:27 | Outpatient (BNV) | payer MEDICARE, SELFPAY | PROVIDERS: PCP Internal Medicine; Visit Provider Nurse Practitioner Family | DX: I48.91 Unspecified atrial fibrillation (principal) | CPT/HCPCS: 78452; 93016; 93018 ==

== ENCOUNTER 2023-09-13 13:31 | Outpatient (AMB) | payer MEDICARE, SELFPAY ==
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
[2023-09-13 13:41] VITALS: BP 120/70; PULSE 51; O2SAT 97; BMI 24.5
== END 2023-09-13 14:09 | disposition home or self-care (01) ==
PROVIDERS: PCP Internal Medicine; Visit Provider Hospitalist
DX: G47.33 Obstructive sleep apnea (adult) (pediatric) (principal); I48.0 Paroxysmal atrial fibrillation; R91.1 Solitary pulmonary nodule
CPT/HCPCS: 99204

== ENCOUNTER → 2023-09-13 13:31 | Outpatient (BNVA) | payer MEDICARE, SELFPAY | PROVIDERS: PCP Internal Medicine; Visit Provider Hospitalist | DX: G47.33 Obstructive sleep apnea (adult) (pediatric) (principal); I48.0 Paroxysmal atrial fibrillation; R91.1 Solitary pulmonary nodule; Z79.01 Long term (current) use of anticoagulants | CPT/HCPCS: 99202 ==

== ENCOUNTER 2023-09-19 15:24 | Outpatient (AMB) | payer MEDICARE, SELFPAY ==
[2023-09-19 15:27] VITALS: BP 126/80; PULSE 49; BMI 23.4
--- NOTE | 2023-09-19 15:27 | MHC.OFFVIS ---
Vital Signs 09/19/23 15:27 Height 5 ft 9 in Weight 158 lb 11.725 oz BMI 23.4 BP 126/80 Blood Pressure Location Lt brachial Position Sitting Pulse 49 L Intake Visit Reasons: follow-up stress results Intake Note: Follow-up stress results feeling ok [employer] Required: No Allergies No Known Allergies Allergy (Verified 09/13/23 13:43) Medication List - Last Reconciled 09/19/23 by Saqib Lucero MD albuterol sulfate 90 mcg/actuation 2 puffs inhalation Q6H PRN apixaban (Eliquis) 5 mg PO BID hydrochlorothiazide 12.5 mg PO DAILY losartan 50 mg PO DAILY tadalafil 20 mg PO DAILY PRN HPI Comments Details: Kelechi comes for follow-up. Recently underwent an echocardiogram which showed distal septal apical wall motion abnormality. Subsequent myocardial perfusion imaging is suggestive of small area of infarct/ischemia in that area. He performed a extremely high workload during the treadmill and had no symptoms as well as no significant EKG changes. He denies any exertional chest pain when he does high workload outside. Denies any episodes of recurrent atrial fibrillation. Overall doing well. No lightheadedness, syncope. No symptoms of CHF with no worsening shortness of breath, orthopnea, PND, leg edema. No bleeding issues or neurologic events. [facility] Medical History (Updated 09/19/23 @ 15:47 by Saqib Lucero MD) Pulmonary nodule DELANO (obstructive sleep apnea) Paroxysmal atrial fibrillation Bradycardia Hernia Hypertension Surgical History Hx of arthroscopic knee surgery Hx of hernia repair Hx of fracture of clavicle Family History Father No problems noted. Mother No problems noted. Social History Patient Tobacco Use Status: Never used Tobacco Review of Systems Const Denies chills, Denies fatigue, Denies fever(s), Denies frequent falls, Denies weakness, Denies weight gain and Denies weight loss ENT Denies dizziness Card Denies chest pain, Denies leg edema, Denies lightheadedness, Denies palpitations, Denies dyspnea, Denies dyspnea on exertion, Denies orthopnea and Denies other (loss of consciousness) Resp Denies cough, Denies dyspnea and Denies dyspnea on exertion GI Denies hematochezia and Denies change in stool character Musc Denies abnormal gait, Denies muscle weakness, Denies numbness, Denies radiating pain into limb and Denies tingling Neuro Denies abnormal gait, Denies dizziness, Denies frequent falls, Denies numbness, Denies tingling and Denies weakness Endo Denies fatigue and Denies palpitations Physical Exam Vital Signs: Last Vital Signs Pulse 49 L 09/19/23 15:27 BP 126/80 09/19/23 15:27 BMI result Body Mass Index 23.4 Const General: cooperative, healthy appearing, comfortable and no acute distress Orientation/consciousness: patient oriented x3 Neck Neck: Yes normal visual inspection and Yes no JVD Resp Effort & Inspection: normal respiratory effort Auscultation: clear to auscultation bilaterally, no crackles, no rales, no rhonchi and no wheezes Cardio Jugular venous distension: no JVD Rate: regular rate Rhythm: regular rhythm Heart sounds: S1 normal heart sound present, S2 normal heart sound present, no murmurs and no rubs Neuro General: patient oriented x3 Extrem General: Yes normal to inspection, No no pedal edema and No calf tenderness Psych Appearance: grossly normal Mental Status: mental status grossly normal Speech and movement: Normal speech and movement present Assessment & Plan Assessment & Plan (1) Paroxysmal atrial fibrillation: Code(s): I48.0 - Paroxysmal atrial fibrillation Category: Medical Plan: Paroxysmal atrial fibrillation currently without any recurrent symptoms. Will continue to monitor for signs or symptoms of atrial fibrillation. Avoidance of stimulants was discussed. His risk factor seems to be hypertension as well as untreated sleep apnea. He surprised diagnose of sleep apnea but is willing to pursue further treatment options including CPAP therapy if required. This may also help with his blood pressure control. Continue full oral anticoagulation, currently on Eliquis 5 mg b.i.d.. Semi annual renal function test should be pursued. CHADSVASc score of 3. (2) CAD (coronary artery disease): Code(s): I25.10 - Atherosclerotic heart disease of [place] coronary artery without angina pectoris Category: Medical Plan: CAD as noted by abnormal stress test as well as abnormal echocardiogram in this patient who can perform very high workload. We discussed management. There is no indication for invasive evaluation as he does not have any symptoms at high workload as well as the area of ischemia is small which carries low risk prognosis. This was discussed with him. I discussed about management of coronary disease. Continue aggressive blood pressure control. Would suggest statin therapy to target goal LDL closer to 60 mg/dL. Was hesitant but agreeable to start statin therapy. Follow-up lipid panel in 3 months time Will follow up in 1 year's time, sooner p.r.n.. Orders: Orders Lipid Panel 3 Months I25.10 - Atherosclerotic heart disease of [place] coronary artery without angina pectoris Medications: New atorvastatin 20 mg PO DAILY 30 tabs 11RF Coding Level of Care Code Est Pt Level 4 (29778) Diagnoses Paroxysmal atrial fibrillation I48.0 CAD (coronary artery disease) I25.10
== END 2023-09-19 15:54 | disposition home or self-care (01) ==
PROVIDERS: PCP Internal Medicine; Visit Provider Internal Medicine Cardiovascular Disease
DX: I48.0 Paroxysmal atrial fibrillation (principal); I25.10 Atherosclerotic heart disease of native coronary artery without angina pectoris
CPT/HCPCS: 99214

== ENCOUNTER → 2023-09-19 15:24 | Outpatient (BNVA) | payer MEDICARE, SELFPAY | PROVIDERS: PCP Internal Medicine; Visit Provider Internal Medicine Cardiovascular Disease | DX: I48.0 Paroxysmal atrial fibrillation (principal); I25.10 Atherosclerotic heart disease of native coronary artery without angina pectoris | CPT/HCPCS: 99212 ==

== ENCOUNTER 2023-11-15 08:41 | Outpatient (AMB) | payer MEDICARE, SELFPAY ==
[2023-11-15 08:43] VITALS: BP 120/60; PULSE 45; BMI 23.6
--- NOTE | 2023-11-15 08:43 | A.OFFVIS_ITS ---
Vital Signs 11/15/23 08:43 Height 5 ft 9 in Weight 159 lb 9.835 oz BMI 23.6 BP 120/60 Blood Pressure Location Lt brachial Position Sitting Pulse 45 L Pulse Source Pulse Oximeter Intake Visit Reasons: 4 month f/u [facility] Nurse Required: No Allergies No Known Allergies Allergy (Verified 11/15/23 08:45) Medication List - Last Reconciled 11/15/23 by Christy Miranda, DONATO-C albuterol sulfate 90 mcg/actuation 2 puffs inhalation Q6H PRN apixaban (Eliquis) 5 mg PO BID atorvastatin 20 mg PO DAILY hydrochlorothiazide 12.5 mg PO DAILY losartan 50 mg PO DAILY tadalafil 20 mg PO DAILY PRN HPI HPI 4 month f/u: Details: Kelechi is a 68-year-old male with past medical history of hypertension, hyperlipidemia, newer findings of paroxysmal atrial fibrillation, coronary artery disease and obstructive sleep apnea. He recently started on CPAP. He now presents cardiac for follow-up. Today he reports he has been doing very well with no concerning symptoms. He tells me that last week he ran a half marathon and came in 3rd in his age group. He exercises routinely, follows a healthy lifestyle and diet. He has no cardiac concerns or symptoms at this time. He denies chest discomfort, shortness of breath, heart palpitations. He wears a smart watch and has not had any documented atrial fibrillation. Has no bleeding with his anticoagulation use. [facility] Medical History Pulmonary nodule DELANO (obstructive sleep apnea) Paroxysmal atrial fibrillation Bradycardia Hernia Hypertension Surgical History Hx of arthroscopic knee surgery Hx of hernia repair Hx of fracture of clavicle Family History Father No problems noted. Mother No problems noted. Social History Patient Tobacco Use Status: Never used Tobacco Review of Systems Const All systems reviewed & are unremarkable except as noted in HPI and below ENT Denies dizziness Card Denies chest pain, Denies chest pain at rest, Denies chest pain with activity, Denies rapid heart rate, Denies pedal edema, Denies edema, Denies leg edema, Denies lightheadedness, Denies palpitations, Denies dyspnea, Denies dyspnea on exertion and Denies orthopnea Resp Denies cough, Denies dyspnea and Denies dyspnea on exertion GI Denies hematochezia and Denies change in stool character Musc Denies abnormal gait, Denies limited range of motion, Denies muscle cramps, Denies muscle weakness, Denies numbness, Denies radiating pain into limb, Denies stiffness and Denies tingling Neuro Denies abnormal gait, Denies dizziness, Denies numbness and Denies tingling Endo Denies palpitations Physical Exam Vital Signs: Last Vital Signs Pulse 45 L 11/15/23 08:43 BP 120/60 11/15/23 08:43 BMI result Body Mass Index 23.6 Const General: cooperative, healthy appearing, comfortable and no acute distress Orientation/consciousness: patient oriented x3 Neck Neck: Yes normal visual inspection Resp Effort & Inspection: normal respiratory effort Auscultation: clear to auscultation bilaterally, no rales, no rhonchi and no wheezes Cardio Rate: regular rate Rhythm: regular rhythm Heart sounds: S1 normal heart sound present, S2 normal heart sound present, no gallops, no murmurs and no rubs Neuro General: patient oriented x3 Extrem General: Yes normal to inspection, No no pedal edema and No calf tenderness Psych Appearance: grossly normal Mental Status: mental status grossly normal Speech and movement: Normal speech and movement present Assessment & Plan Assessment & Plan (1) Paroxysmal atrial fibrillation: Code(s): I48.0 - Paroxysmal atrial fibrillation Category: Medical Plan: Newer finding of Paroxysmal atrial fibrillation, without any recent recurrent episodes. He uses a smart watch which tells him of these events. He denies any palpitations with his AFib. He runs a low heart rate and does not require any rate slowing agents. He is on Eliquis for anticoagulation and has not had any bleeding issues. Labs done 05/31/2023 showed creatinine 0.96. Should be checked by annual. He has a newer finding of sleep apnea and tells me for the last 2 months he has been wearing CPAP. Continue current management. Avoid alcohol and stimulant use. Emergency care if needed for symptoms. Cardiology follow-up 6 months, sooner if needed. (2) CAD (coronary artery disease): Code(s): I25.10 - Atherosclerotic heart disease of [place] coronary artery without angina pectoris Category: Medical Plan: Nuclear stress test done as part of the workup for his newer finding of AFib. Exercise stress test done 08/19/2023 with exercise over 12 minutes, no anginal symptoms and no EKG changes. His nuclear imaging did show possible ischemia or infarct pattern in the basal inferior and inferior septal wall, mild ischemia in the apex, can not exclude diaphragm attenuation artifact. Presumed diagnosis of CAD due to stress test abnormality. He has no anginal symptoms and just completed a half marathon which he tolerated very well. Will continue with risk factor modification. Blood pressure currently controlled 120/60. He was recently started on statin therapy. His lipid profile is due next month. Sherrill LDL goal 60. Signs and symptoms of angina reviewed with him. Plan Time spent on chart review, documentation, interview assessment Coding Level of Care Code Est Pt Level 3 (69223) Diagnoses Paroxysmal atrial fibrillation I48.0 CAD (coronary artery disease) I25.10 Time Spent (min) 24
== END 2023-11-15 09:04 | disposition home or self-care (01) ==
PROVIDERS: PCP Internal Medicine; Visit Provider Nurse Practitioner Family
DX: I48.0 Paroxysmal atrial fibrillation (principal); I25.10 Atherosclerotic heart disease of native coronary artery without angina pectoris
CPT/HCPCS: 99213

== ENCOUNTER → 2023-11-15 08:41 | Outpatient (BNVA) | payer MEDICARE, SELFPAY | PROVIDERS: PCP Internal Medicine; Visit Provider Nurse Practitioner Family | DX: I10 Essential (primary) hypertension (principal); I48.0 Paroxysmal atrial fibrillation; I25.10 Atherosclerotic heart disease of native coronary artery without angina pectoris; E78.5 Hyperlipidemia, unspecified; G47.33 Obstructive sleep apnea (adult) (pediatric); Z99.89 Dependence on other enabling machines and devices | CPT/HCPCS: 99212 ==

== ENCOUNTER 2023-12-13 13:16 | Outpatient (AMB) | payer MEDICARE, SELFPAY ==
[2023-12-13 13:26] VITALS: BP 136/70; PULSE 48; O2SAT 98; BMI 23.4
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
== END 2023-12-13 13:56 | disposition home or self-care (01) ==
PROVIDERS: PCP Internal Medicine; Visit Provider Hospitalist
DX: G47.33 Obstructive sleep apnea (adult) (pediatric) (principal); I48.0 Paroxysmal atrial fibrillation; R91.1 Solitary pulmonary nodule
CPT/HCPCS: 99214

== ENCOUNTER → 2023-12-13 13:16 | Outpatient (BNVA) | payer MEDICARE, SELFPAY | PROVIDERS: PCP Internal Medicine; Visit Provider Hospitalist | DX: G47.33 Obstructive sleep apnea (adult) (pediatric) (principal); I48.0 Paroxysmal atrial fibrillation; R91.1 Solitary pulmonary nodule; Z99.89 Dependence on other enabling machines and devices | CPT/HCPCS: 99212 ==

== ENCOUNTER 2023-12-22 09:10 | Outpatient (REF) | payer MEDICARE, SELFPAY ==
[2023-12-22 10:18] LABS: Cholesterol 154 mg/dL (<200); HDL Cholesterol 77 mg/dL (>40); LDL Cholesterol Calculated 70 mg/dL (<100); Triglycerides 36 mg/dL (<150)
== END 2023-12-22 09:11 | disposition home or self-care (01) ==
LOC: HO.LAB 09:10
PROVIDERS: PCP Internal Medicine; Visit Provider Internal Medicine Cardiovascular Disease
DX: I25.10 Atherosclerotic heart disease of native coronary artery without angina pectoris (principal)
CPT/HCPCS: 36415; 80061

== ENCOUNTER 2024-03-05 15:08 | Outpatient (REF) | payer MEDICARE, SELFPAY ==
--- NOTE | ~2024-03-05 | CT_ITS ---
CLINICAL HISTORY: R91.1 - Solitary pulmonary nodule CT chest without IV contrast. Comparison: None Findings: Subpleural 4 mm nodule right lower lobe 312:6, 5 mm subpleural nodule right middle lobe 365:6 , 4 mm nodule right lower lobe 395:6 , right lung base 426:6, 3 mm subpleural nodule posterior right costophrenic sulcus image 447. No sizable nodules on the left. No dominant nodule. Thoracic inlet intact. Streak artifact from fixation hardware left clavicle. No thyroid nodules. No enlarged mediastinal or hilar lymph nodes. Thoracic aorta normal caliber. Heart size normal. No pericardial effusion. Mild coronary artery calcification. No pleural or pericardial effusion. No enlarged mediastinal or hilar lymph nodes. Small hypodensities in the lateral segment left hepatic lobe possibly cysts. Could confirm with ultrasound. Nonspecific wall thickening distal esophagus. May relate to hiatal hernia. Plate and screw fixation left clavicle. Old fracture deformity left ribs. Bone [place] 5th rib. Otherwise bones intact. Soft tissues unremarkable. Impression: Multiple small right pulmonary nodules. No dominant nodule. Per Fleischner Society guidelines, no routine follow-up required if patient felt to be of low risk. Otherwise optional CT follow-up in 12 months. No acute appearing infiltrate/consolidation. Otherwise no acute cardiopulmonary process. This document has been electronically signed by: Chadwick Mayfield MD on 03/09/2024 13:10:40
== END 2024-03-05 15:09 | disposition home or self-care (01) ==
LOC: HO.CT 15:08
PROVIDERS: PCP Internal Medicine; Visit Provider Hospitalist
DX: R91.1 Solitary pulmonary nodule (principal)
CPT/HCPCS: 71250

== ENCOUNTER → 2024-03-05 15:10 | Outpatient (BNV) | payer MEDICARE, SELFPAY | PROVIDERS: PCP Internal Medicine; Visit Provider Radiology Diagnostic Radiology | DX: R91.1 Solitary pulmonary nodule (principal) | CPT/HCPCS: 71250 ==

== ENCOUNTER 2024-05-15 09:13 | Outpatient (AMB) | payer MEDICARE, SELFPAY ==
--- NOTE | 2024-05-15 09:15 | MHC.OFFVIS ---
Vital Signs 05/15/24 09:16 Height 5 ft 9 in Weight 156 lb 8.451 oz BMI 23.1 BP 102/66 Blood Pressure Location Lt brachial Position Sitting Pulse 42 L Intake Visit Reasons: 6 mth f/up Intake Note: 6 month follow-up with ekg feeling good Automotive Lot Attendant Required: No Allergies No Known Allergies Allergy (Verified 12/13/23 13:29) Medication List - Last Reconciled 05/15/24 by Saqib Lucero MD albuterol sulfate 90 mcg/actuation 2 puffs inhalation Q6H PRN atorvastatin 20 mg PO DAILY hydrochlorothiazide 12.5 mg PO DAILY losartan 50 mg PO DAILY tadalafil 20 mg PO DAILY PRN HPI Comments Details: Kelechi comes for follow-up. He remains in excellent shape and exercises regularly. He has no exertional symptoms of chest pain or shortness of breath. No heart failure symptoms. He said he has not had any symptoms of palpitation irregular heartbeat although he was asymptomatic when he had episode of atrial fibrillation. He said his watch does not tell him that he was irregular heartbeat. He denies any fatigue or lightheadedness or syncope. He was stopped his Eliquis for the fear of bleeding complication as he was highly active and is fearful that he will get hurt. He is using his CPAP regularly. [facility] Medical History (Updated 05/15/24 @ 09:58 by Saqib Lucero MD) Pulmonary nodule DELANO (obstructive sleep apnea) Paroxysmal atrial fibrillation Bradycardia Hernia Hypertension Surgical History Hx of arthroscopic knee surgery Hx of hernia repair Hx of fracture of clavicle Family History Father No problems noted. Mother No problems noted. Social History Patient Tobacco Use Status: Never used Tobacco Review of Systems Const Denies chills, Denies fatigue, Denies fever(s), Denies frequent falls, Denies weakness, Denies weight gain and Denies weight loss ENT Denies dizziness Card Denies chest pain, Denies leg edema, Denies lightheadedness, Denies palpitations, Denies dyspnea, Denies dyspnea on exertion, Denies orthopnea and Denies other (loss of consciousness) Resp Denies cough, Denies dyspnea and Denies dyspnea on exertion GI Denies hematochezia and Denies change in stool character Musc Denies abnormal gait, Denies muscle weakness, Denies numbness, Denies radiating pain into limb and Denies tingling Neuro Denies abnormal gait, Denies dizziness, Denies frequent falls, Denies numbness, Denies tingling and Denies weakness Endo Denies fatigue and Denies palpitations Physical Exam Vital Signs: Last Vital Signs Pulse 42 L 05/15/24 09:16 BP 102/66 05/15/24 09:16 BMI result Body Mass Index 23.1 Const General: cooperative, healthy appearing, comfortable and no acute distress Orientation/consciousness: patient oriented x3 Neck Neck: Yes normal visual inspection and Yes no JVD Resp Effort & Inspection: normal respiratory effort Auscultation: clear to auscultation bilaterally, no crackles, no rales, no rhonchi and no wheezes Cardio Jugular venous distension: no JVD Rate: regular rate Rhythm: regular rhythm Heart sounds: S1 normal heart sound present, S2 normal heart sound present, no murmurs and no rubs Neuro General: patient oriented x3 Extrem General: Yes normal to inspection, No no pedal edema and No calf tenderness Psych Appearance: grossly normal Mental Status: mental status grossly normal Speech and movement: Normal speech and movement present Office Procedures EKG Details: EKG shows junctional bradycardia with voltage criteria for LVH with underlying sinus bradycardia 00630-[id number], Complete Assessment & Plan Assessment & Plan (1) Paroxysmal atrial fibrillation: Code(s): I48.0 - Paroxysmal atrial fibrillation Category: Medical Plan: Paroxysmal atrial fibrillation with 1 episode which was completely asymptomatic. He was no apparent recurrent episodes of atrial fibrillation. We had a very long discussion about pathology and pathophysiology of atrial fibrillation associated stroke risk. We discussed all the data till present time. He was concerned about bleeding risk although we suggested that he was also at a risk for stroke given his CHADSVASc score of 2-3. We discovered benefit of oral anticoagulation therapy to reduce risk of stroke. He eventually agreed to restart Eliquis therapy. Continue risk factor modification with aggressive blood pressure control as well as treatment of sleep apnea. Continue monitor for presence of atrial fibrillation. Will continue pursue rhythm control approach. Avoidance of stimulants was discussed. (2) Hypertension: Code(s): I10 - Essential (primary) hypertension Category: Medical Plan: Hypertension which is currently well optimized advised to monitor blood pressure at home and maintain a log. Continue current losartan and hydrochlorothiazide therapy with well controlled blood pressure. Low-salt diet was discussed. Continue CPAP therapy. (3) Bradycardia: Code(s): R00.1 - Bradycardia, unspecified Category: Medical Plan: Patient was bradycardia with junctional rhythm today most likely due to excellent autonomic vagal tone suppressed in his overall sinus node function. This is physiologic and not pathologic. He was currently no symptoms at this point time I would suggest no further therapy. Advised to call me with any symptoms related to slow heart rate. Will follow up in the clinic in 1 year's time, sooner p.r.n.. Thank you allowing partake in his care Coding Level of Care Code Est Pt Level 4 (72690) Complex EM visit Add On G2211 Diagnoses Paroxysmal atrial fibrillation I48.0 Hypertension I10 Bradycardia R00.1 CPT Codes EKG - CPT: 98050-[id number], Complete ([id number])
[2024-05-15 09:16] VITALS: BP 102/66; PULSE 42; BMI 23.1
--- OUTSIDE RECORDS SUMMARY | 2024-05-15 09:55 | XMS_ITS ---
Author Name [facility] Organization Unknown Care Team Organization Name Specialty Phone Email Start Date End Jose reilly PodiatryCayla P.CReece 07/31/2022 PodiatryCayla P.Mirella [facility]
== END 2024-05-15 09:49 | disposition home or self-care (01) ==
LOC: HO.HCS 09:14
PROVIDERS: PCP Internal Medicine; Visit Provider Internal Medicine Cardiovascular Disease
DX: I48.0 Paroxysmal atrial fibrillation (principal); I10 Essential (primary) hypertension; R00.1 Bradycardia, unspecified
CPT/HCPCS: 93010; 99214; G2211

== ENCOUNTER → 2024-05-15 09:13 | Outpatient (BNVA) | payer MEDICARE, SELFPAY | PROVIDERS: PCP Internal Medicine; Visit Provider Internal Medicine Cardiovascular Disease | DX: I48.0 Paroxysmal atrial fibrillation (principal); I10 Essential (primary) hypertension; R00.1 Bradycardia, unspecified | CPT/HCPCS: 93005; 99212 ==

== ENCOUNTER 2024-07-18 12:55 | Outpatient (AMB) | payer MEDICARE, SELFPAY ==
--- NOTE | 2024-07-18 13:03 | MHC.PC.OV ---
Vital Signs 07/18/24 13:14 Height 5 ft 8.5 in Weight 155 lb 4 oz BMI 23.3 BP 130/60 Blood Pressure Location Lt brachial Position Sitting Pulse 51 Pulse Source Pulse Oximeter Temp 97.3 F Temp Source Temporal Artery Scan Pulse Oximetry (%) 98 Oxygen Delivery Method Room Air Intake Visit Reasons: establish care Intake Note: Patient is a new patient here to establish care for CAD, DELANO on Cpap, HTN, PAfib, Bradycardia. Transferring care from [facility]. Medical records have been requested and have not received. Armament Mechanic Required: No Pension Adviser: Not Required per policy Accompanied by: Self / Same As Patient Allergies No Known Allergies Allergy (Verified 07/18/24 13:34) Medication List - Last Reconciled 07/18/24 by HAKAN Arteaga albuterol sulfate 90 mcg/actuation 2 puffs inhalation Q6H PRN apixaban (Eliquis) 5 mg PO BID atorvastatin 20 mg PO DAILY hydrochlorothiazide 12.5 mg PO DAILY losartan 50 mg PO DAILY tadalafil 20 mg PO DAILY PRN Tobacco use date assessed: 07/18/24 Fall risk assessment: No Falls in past year Last assessed Fall Risk: 07/18/24 Dental Screening Dental Screen Date: 07/18/24 Did you have a dental visit in the last 12 months?: Yes Did you have a dental problem in the last 6 months where you did not have access to dental care?: No Was dental information given to patient?: Patient has dentist HPI establish care HPI Details Previous PCP: Sarah Estevez Last visit: last summer Last PE: same Specialist:Cardiology, OBGYN:N/A Past medical history:Afib, bradycardia, DELANO on CPAP, htn, COPD Medications: Family HX: both parents alcoholism, skin cancer-mother, sister-melanoma, anemia Problem: The patient is a 69-year-old male presenting to establish care and address the management of his chronic medical conditions, including obstructive sleep apnea, atrial fibrillation, essential hypertension, and bradycardia. The obstructive sleep apnea was discovered following diagnostic testing after an atrial fibrillation alert from a smartwatch. While initially surprised by the diagnosis, the patient has adhered to CPAP therapy, although he reports worsened sleep quality. Atrial fibrillation was first identified after a smartwatch alert, resolving within 12 hours. Despite good blood pressure control over 8 years and no familial hypertension, his hypertension persists. Bradycardia noted during a pre-operative evaluation for hernia surgery was dismissed as an athletic variant due to regular running. Anemia identified about 15 years ago has been managed with an iron supplement, without recent hematological follow-up. A lung nodule was found incidentally, with no follow-up recommended under current guidelines. The patient carries no symptoms and has a significant family history of skin cancer. [facility] Medical History (Updated 07/22/24 @ 19:20 by HAKAN Arteaga) Pulmonary nodule DELANO (obstructive sleep apnea) Paroxysmal atrial fibrillation Bradycardia Hernia Hypertension Surgical History Hx of arthroscopic knee surgery Hx of hernia repair Hx of fracture of clavicle Family History Father No problems noted. Mother No problems noted. Other Mental health disorder Social History Housing: House Alcohol intake: current Alcohol intake frequency: a few times a week Patient Tobacco Use Status: Never used Tobacco e-Cigarette/Vaping Use: Never Used Second Hand Smoke Exposure: No service: No Current occupational status: employed Cognitive needs: No Hearing needs: No Vision needs: Yes (Reading glasses) Questionnaire PHQ-9 Over the last 2 weeks, how often have you been bothered by any of the following problems? 1. Little interest or pleasure in doing things: not at all 2. Feeling down, depressed, or hopeless: not at all 3. Trouble falling or staying asleep, or sleeping too much: not at all 4. Feeling tired or having little energy: not at all 5. Poor appetite or overeating: not at all 6. Feeling bad about yourself - or that you are a failure or have let yourself or your family down: not at all 7. Trouble concentrating on things, such as reading the newspaper or watching television: not at all 8. Moving or speaking so slowly that other people could have noticed. Or the opposite - being so fidgety or restless that you have been moving around a lot more than usual: not at all 9. Thoughts that you would be better off or of hurting yourself in some way: not at all Total score: 0 Depression Screening Interpretation: Negative Depression Screening Done: Yes 35079 - PHQ-9 Billing: Yes Source: Developed by Drs. Mert Lerma, Kerrie Lion, Jayson Waters and colleagues, with an educational albina from [employer]. Thrive Questionnaire Date Thrive assessed: 07/16/24 I am a: Patient What is your living situation today?: I have a steady place to live Within the past 12 months, did the food you bought not last and you didn't have the money to get more?: Never true Within the past 12 months, did you worry whether your food would run out before you got money to buy more?: Never true Do you have trouble paying for medicines?: No Do you have trouble getting transportation to medical appointments?: No Do you have trouble paying your heating and electricity bill?: No Do you have trouble taking care of your child, family member or friend?: No Do you have trouble with day-to-day activities such as bathing, preparing meals, shopping, managing finances, etc.?: No Are you currently unemployed and looking for a job?: No Are you interested in more education?: No Please select the resources that you would like help with: None Currently or been in a relationship where the following occur: No concerns reported THRIVE Score: 0 AUDIT C Alcohol Use Questionnaire (AUDIT-C) 1. How often do you have a drink containing alcohol?: 2-4 times a month 2. How many drinks containing alcohol do you have on a typical day when you are drinking?: 1 or 2 3. How often do you have six or more drinks on one occasion?: Never Total Score: 2 TILA-7 AMB Questionnaire TILA-7 Date TILA - 7 assessed: 07/18/24 Feeling nervous, anxious, or on edge: 0 = Not at all Not being able to stop or control worryin = Not at all Worrying too much about different things: 0 = Not at all Trouble relaxin = Not at all Being so restless that it is hard to sit still: 0 = Not at all Becoming easily annoyed or irritable: 0 = Not at all Feeling afraid as if something awful might happen: 0 = Not at all Total TILA-7 score (0-4 normal; 5-9 mild; 10-14 moderate; 15-21 severe): 0 Source: Developed by Drs. Mert Lerma, Kerrie Lion, Jayson Waters and colleagues, with an educational albina from [employer]. TILA-7 Assessment Billing TILA-7 Assessment Tool: TILA-7 Assessment 55821 Review of Systems Const Denies headache(s) Eyes Denies loss of vision ENT Denies vertigo, Denies dizziness, Denies headache(s) and Denies sore throat Card Denies chest pain, Denies leg edema and Denies lightheadedness Resp Denies cough, Denies hemoptysis and Denies wheezing GI Denies abdominal pain, Denies melena, Denies constipation, Denies diarrhea and Denies vomiting Denies dysuria, Denies urinary frequency and Denies urinary urgency Musc Denies arthralgias, Denies joint swelling, Denies numbness and Denies tingling Neuro Denies Abnormal speech present, Denies behavioral changes, Denies vertigo, Denies dizziness, Denies headache(s), Denies loss of vision, Denies memory loss, Denies numbness and Denies tingling Psych Denies anxiety, Denies behavioral changes, Denies depression, Denies memory loss and Denies panic attacks Jamie/Lymph Denies easy bleeding and Denies easy bruising Aller/Immun Denies wheezing Physical exam (Primary Care) Vital Signs: Last Vital Signs Temp 97.3 F 07/18/24 13:14 Pulse 51 07/18/24 13:14 BP 130/60 07/18/24 13:14 Pulse Ox 98 07/18/24 13:14 Oxygen Delivery Method Room Air 07/18/24 13:14 BMI result Body Mass Index 23.3 Tobacco/Smoking Status: Tobacco use Status Tobacco use date assessed 07/18/24 07/18/24 13:13 Patient Tobacco Use Status Never used Tobacco 07/18/24 13:27 e-Cigarette/Vaping Use Never Used 07/18/24 13:27 PHQ-9: PHQ-9 Score PHQ-9: Total score 0 07/18/24 13:37 Depression Screening Interpretation: Negative Thrive Assessment: Date of Thrive Assessment Date Thrive assessed 07/16/24 07/18/24 13:06 Currently or been in a relationship where the following occur: No concerns reported Const General: healthy appearing, no acute distress, alert and awake Nutritional Appearance: well nourished Orientation/consciousness: oriented to person, oriented to place and oriented to time HENMT Ears: TM's normal bilaterally General nose exam: Normal nasal mucous membranes and turbinates present Eyes Conjunctivae: conjunctivae normal Sclerae: sclerae normal Pupils: Equal, round and reactive pupils present Neck Neck: Yes no lymphadenopathy and Yes no JVD Thyroid: Thyroid normal Carotids: no bruits Resp Effort & Inspection: normal respiratory effort and not tachypneic Auscultation: no crackles, no rales, no rhonchi and no wheezes Cardio Rate: bradycardic Rhythm: regular rhythm Heart sounds: no murmurs and normal S1 and S2 GI Palpation (GI): Soft to palpation, nontender, no hepatomegaly and no splenomegaly Auscultation: normal bowel sounds Skin General skin exam: no rashes or lesions noted and dry skin Neuro General: oriented to person, oriented to place and oriented to time Cranial nerves: Yes Equal, round and reactive pupils present Speech: No Abnormal speech present Gait exam (Neuro): Normal gait present Motor exam (neuro): no tremor noted Extrem Right upper extremity: full ROM Left upper extremity: full ROM Right lower extremity: full ROM; no edema Left lower extremity: full ROM; no edema Psych Mental Status: mental status grossly normal Speech and movement: Normal speech and movement present Affect: normal affect Attitude: cooperative Thought process: Normal thought process present Coding Level of Care Code New Pt Level 4 (24819) Diagnoses Coronary artery disease involving galena coronary artery of galena heart without angina pectoris I25.10 Coronary Disease-Associated Artery/Lesion type: galena artery [place] vs. transplanted heart: galena heart Associated angina: without angina DELANO (obstructive sleep apnea) G47.33 Hypertension, unspecified type I10 Hypertension type: unspecified Paroxysmal atrial fibrillation I48.0 Bradycardia R00.1 Pulmonary nodule R91.1 Additional Codes PHQ-9 - 90060 - PHQ-9 Billing: Yes ([id number]) TILA-7 Assessment Billing - ITLA-7 Assessment Tool: TILA-7 Assessment 23480 ([id number]) Time Spent (min) 39 Assessment & Plan Assessment & Plan (1) CAD (coronary artery disease): Code(s): I25.10 - Atherosclerotic heart disease of galena coronary artery without angina pectoris Category: Medical Qualifiers: Coronary Disease-Associated Artery/Lesion type: galena artery [place] vs. transplanted heart: galena heart Associated angina: without angina Qualified Code(s): I25.10 - Atherosclerotic heart disease of galena coronary artery without angina pectoris Plan: Recently underwent an echocardiogram which showed distal septal apical wall motion abnormality. Subsequent myocardial perfusion imaging is suggestive of small area of infarct/ischemia in that area. Patient is considered to be low risk due to his active lifestyle without symptoms. [place] LDL 60 Continue atorvastatin 20 mg daily, losartan 50 mg daily, hydrochlorothiazide 12.5 mg daily Follow up with Cardiology as scheduled (2) DELANO (obstructive sleep apnea): Code(s): G47.33 - Obstructive sleep apnea (adult) (pediatric) Category: Medical (3) Hypertension: Code(s): I10 - Essential (primary) hypertension Category: Medical Qualifiers: Hypertension type: unspecified Qualified Code(s): I10 - Essential (primary) hypertension Plan: Reinforced low-salt diet Continue losartan 50 mg daily, hydrochlorothiazide 12.5 mg daily (4) Paroxysmal atrial fibrillation: Code(s): I48.0 - Paroxysmal atrial fibrillation Category: Medical Plan: Patient is on no rate control because he naturally runs in the bradycardic range. 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 Continue apixaban 5 mg b.i.d. and atorvastatin 20 mg daily Follow up with Cardiology as scheduled (5) Bradycardia: Code(s): R00.1 - Bradycardia, unspecified Category: Medical Plan: Per cardiology note, Patient was bradycardia with junctional rhythm today most likely due to excellent autonomic vagal tone suppressed in his overall sinus node function. This is physiologic and not pathologic. He currently has no symptoms at this point time I would suggest no further therapy. Advised to call me with any symptoms related to slow heart rate. (6) Pulmonary nodule: Code(s): R91.1 - Solitary pulmonary nodule Category: Medical Plan: Incidental finding of pulmonary nodule 3 mm in size, in 2020 on CAT scan. Repeat CAT scan in 03/09/2024 showed stable pulmonary nodule 4 mm with no routine follow up if patient is low risk. Follow up with pulmonology as scheduled Plan Patient to return in 8 weeks for annual physical Orders: Orders Complete Blood Count Auto Diff 07/18/24 D64.9 - Anemia, unspecified, G47.33 - Obstructive sleep apnea (adult) (pediatric), I10 - Essential (primary) hypertension, I25.10 - Atherosclerotic heart disease of galena coronary artery without angina pectoris, I48.0 - Paroxysmal atrial fibrillation, R00.1 - Bradycardia, unspecified, R91.1 - Solitary pulmonary nodule, R93.1 - Abnormal findings on diagnostic imaging of heart and coronary circulation, Z00.00 - Encounter for general adult medical examination without abnormal findings Lipid Panel 07/18/24 G47.33 - Obstructive sleep apnea (adult) (pediatric), I10 - Essential (primary) hypertension, I25.10 - Atherosclerotic heart disease of galena coronary artery without angina pectoris, I48.0 - Paroxysmal atrial fibrillation, R00.1 - Bradycardia, unspecified, R91.1 - Solitary pulmonary nodule, R93.1 - Abnormal findings on diagnostic imaging of heart and coronary circulation, Z00.00 - Encounter for general adult medical examination without abnormal findings UA CC w/rflx Micro + Cult 07/18/24 G47.33 - Obstructive sleep apnea (adult) (pediatric), I10 - Essential (primary) hypertension, I25.10 - Atherosclerotic heart disease of galena coronary artery without angina pectoris, I48.0 - Paroxysmal atrial fibrillation, R00.1 - Bradycardia, unspecified, R91.1 - Solitary pulmonary nodule, R93.1 - Abnormal findings on diagnostic imaging of heart and coronary circulation, Z00.00 - Encounter for general adult medical examination without abnormal findings Vitamin B12 and Folate 07/18/24 G47.33 - Obstructive sleep apnea (adult) (pediatric), I10 - Essential (primary) hypertension, I25.10 - Atherosclerotic heart disease of galena coronary artery without angina pectoris, I48.0 - Paroxysmal atrial fibrillation, R00.1 - Bradycardia, unspecified, R91.1 - Solitary pulmonary nodule, R93.1 - Abnormal findings on diagnostic imaging of heart and coronary circulation, Z00.00 - Encounter for general adult medical examination without abnormal findings Vitamin D 25-OH Total 07/18/24 G47.33 - Obstructive sleep apnea (adult) (pediatric), I10 - Essential (primary) hypertension, I25.10 - Atherosclerotic heart disease of galena coronary artery without angina pectoris, I48.0 - Paroxysmal atrial fibrillation, R00.1 - Bradycardia, unspecified, R91.1 - Solitary pulmonary nodule, R93.1 - Abnormal findings on diagnostic imaging of heart and coronary circulation, Z00.00 - Encounter for general adult medical examination without abnormal findings Hemoglobin A1c 07/18/24 G47.33 - Obstructive sleep apnea (adult) (pediatric), I10 - Essential (primary) hypertension, I25.10 - Atherosclerotic heart disease of galena coronary artery without angina pectoris, I48.0 - Paroxysmal atrial fibrillation, R00.1 - Bradycardia, unspecified, R91.1 - Solitary pulmonary nodule, R93.1 - Abnormal findings on diagnostic imaging of heart and coronary circulation, Z00.00 - Encounter for general adult medical examination without abnormal findings PSA,Total (Free>4and<10) 07/18/24 G47.33 - Obstructive sleep apnea (adult) (pediatric), I10 - Essential (primary) hypertension, I25.10 - Atherosclerotic heart disease of galena coronary artery without angina pectoris, I48.0 - Paroxysmal atrial fibrillation, R00.1 - Bradycardia, unspecified, R91.1 - Solitary pulmonary nodule, R93.1 - Abnormal findings on diagnostic imaging of heart and coronary circulation, Z00.00 - Encounter for general adult medical examination without abnormal findings Comprehensive [place]. Panel Fast 07/18/24 G47.33 - Obstructive sleep apnea (adult) (pediatric), I10 - Essential (primary) hypertension, I25.10 - Atherosclerotic heart disease of galena coronary artery without angina pectoris, I48.0 - Paroxysmal atrial fibrillation, R00.1 - Bradycardia, unspecified, R91.1 - Solitary pulmonary nodule, R93.1 - Abnormal findings on diagnostic imaging of heart and coronary circulation, Z00.00 - Encounter for general adult medical examination without abnormal findings TSH reflex Free T4 07/18/24 G47.33 - Obstructive sleep apnea (adult) (pediatric), I10 - Essential (primary) hypertension, I25.10 - Atherosclerotic heart disease of galena coronary artery without angina pectoris, I48.0 - Paroxysmal atrial fibrillation, R00.1 - Bradycardia, unspecified, R91.1 - Solitary pulmonary nodule, R93.1 - Abnormal findings on diagnostic imaging of heart and coronary circulation, Z00.00 - Encounter for general adult medical examination without abnormal findings IRON PROFILE 07/18/24 G47.33 - Obstructive sleep apnea (adult) (pediatric), I10 - Essential (primary) hypertension, I25.10 - Atherosclerotic heart disease of galena coronary artery without angina pectoris, I48.0 - Paroxysmal atrial fibrillation, R00.1 - Bradycardia, unspecified, R91.1 - Solitary pulmonary nodule, R93.1 - Abnormal findings on diagnostic imaging of heart and coronary circulation, Z00.00 - Encounter for general adult medical examination without abnormal findings Medications: New mometasone 100 mcg/actuation (Asmanex HFA) 1 inh inhalation BID 13 grams 1RF
[2024-07-18 13:14] VITALS: BP 130/60; PULSE 51; TEMP 36.3; O2SAT 98; BMI 23.3
== END 2024-07-18 14:18 | disposition home or self-care (01) ==
LOC: HO.HMCH 12:56
DX: I25.10 Atherosclerotic heart disease of native coronary artery without angina pectoris (principal); G47.33 Obstructive sleep apnea (adult) (pediatric); I10 Essential (primary) hypertension; I48.0 Paroxysmal atrial fibrillation; R00.1 Bradycardia, unspecified; R91.1 Solitary pulmonary nodule

== ENCOUNTER → 2024-07-18 12:55 | Outpatient (BNVA) | payer MEDICARE, SELFPAY | PROVIDERS: PCP Internal Medicine | DX: I25.10 Atherosclerotic heart disease of native coronary artery without angina pectoris (principal); I10 Essential (primary) hypertension; I48.0 Paroxysmal atrial fibrillation; G47.33 Obstructive sleep apnea (adult) (pediatric); R00.1 Bradycardia, unspecified; R91.1 Solitary pulmonary nodule | CPT/HCPCS: 96127; 99202 ==

== ENCOUNTER 2024-08-28 09:52 | Outpatient (REF) | payer MEDICARE, SELFPAY ==
[2024-08-28 10:07] LABS: MANUAL DIFF FLAG NO
[2024-08-28 10:36] LABS: Hematocrit 36.1 % (42.0-52.0); Hemoglobin 12.5 g/dl (14.0-18.0); Imm Gran Abs Auto 0.00 X10*3/uL (0.00-0.03); Imm Gran Pct Auto 0.0 % (0.0-0.4); Lymphocytes Absolute Auto 1.3 X10*3/uL (1.2-4.9); Mean Corpuscular HGB Conc 34.6 g/dl (31.0-36.0); Mean Corpuscular Hemoglobin 31.5 pg (27.0-33.0); Mean Corpuscular Volume 90.9 fL (80.0-98.0); NRBC Abs Auto 0.000 X10*3/uL (0.0-0.012); NRBC Pct Auto 0.0 /100WBC (0.0-0.2); Platelet Count 154 X10*3/uL (160-400); Red Blood Count 3.97 X10*6/uL (4.60-5.80); White Blood Count 4.2 X10*3/uL (4.8-10.8)
[2024-08-28 10:44] LABS: Appearance Urine Clear; Glucose Urine UA Negative (Negative); PH 7.5 (5.0-9.0); Specific Gravity - Urine 1.010 (1.005-1.025)
--- OUTSIDE RECORDS SUMMARY | 2024-08-28 10:50 | XMS_ITS ---
Author Name [facility] Organization Unknown Care Team Organization Name Specialty Phone Email Start Date End Jose Addison PReeceCReece 07/31/2022 [facility]
[2024-08-28 10:55] LABS: Hemoglobin A1C 120.4914 umol/L; Total Hemoglobin (HGBA1C) 3347.3621 umol/L
[2024-08-28 11:22] LABS: Alanine Aminotransferase 29 U/L (0-40); Albumin Level 4.2 g/dL (3.5-5.0); Alkaline Phosphatase 62 U/L (39-117); Anion Gap 12 (12-20); Aspartate Amino Transferase 32 U/L (5-37); Blood Urea Nitrogen 16 mg/dL (9-16); Calcium 8.6 mg/dL (8.4-10.2); Carbon Dioxide 27 mmol/L (22-29); Chloride 106 mmol/L (96-108); Cholesterol 161 mg/dL (<200); Estimated Glomerular Filt Rate > 60; HDL Cholesterol 71 mg/dL (>40); Iron 65 mcg/dL (45-160); Percent Iron Saturation 28 % (15-50); Potassium 3.8 mmol/L (3.3-5.1); Sodium 141 mmol/L (135-145); Total Iron Binding Capacity 230 mcg/dL (228-428); Total Protein 6.4 g/dL (6.5-8.0); Triglycerides 47 mg/dL (<150); Unsaturated Iron Binding 165 ug/dL
[2024-08-28 11:31] LABS: PSA,Total (Free>4and<10) 1.60 ng/mL (0.00-4.00)
[2024-08-28 11:41] LABS: Folate 7.6 ng/mL (> or = 4.0); Vitamin B12 507 pg/mL (200-900)
== END 2024-08-28 09:53 | disposition home or self-care (01) ==
LOC: HO.LAB 09:52
DX: I25.10 Atherosclerotic heart disease of native coronary artery without angina pectoris (principal); R91.1 Solitary pulmonary nodule; G47.33 Obstructive sleep apnea (adult) (pediatric); R93.1 Abnormal findings on diagnostic imaging of heart and coronary circulation; R00.1 Bradycardia, unspecified; I10 Essential (primary) hypertension; I48.0 Paroxysmal atrial fibrillation; Z00.00 Encounter for general adult medical examination without abnormal findings; D64.9 Anemia, unspecified
CPT/HCPCS: 36415; 80053; 80061; 81003; 82306; 82607; 82746; 83036; 83540; 84153; 84443; 85025

== ENCOUNTER 2024-09-03 10:33 | Outpatient (AMB) | payer MEDICARE, SELFPAY ==
[2024-09-03 10:43] VITALS: BP 100/54; PULSE 47; O2SAT 97; BMI 23.8
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
== END 2024-09-03 11:48 | disposition home or self-care (01) ==
LOC: HO.HPS 10:34
PROVIDERS: PCP Internal Medicine; Visit Provider Hospitalist
DX: G47.33 Obstructive sleep apnea (adult) (pediatric) (principal); I48.0 Paroxysmal atrial fibrillation; R91.1 Solitary pulmonary nodule; R91.8 Other nonspecific abnormal finding of lung field
CPT/HCPCS: 99214

== ENCOUNTER → 2024-09-03 10:33 | Outpatient (BNVA) | payer MEDICARE, SELFPAY | PROVIDERS: PCP Internal Medicine; Visit Provider Hospitalist | DX: G47.33 Obstructive sleep apnea (adult) (pediatric) (principal); I48.0 Paroxysmal atrial fibrillation; R91.1 Solitary pulmonary nodule; R91.8 Other nonspecific abnormal finding of lung field | CPT/HCPCS: 99212 ==

== ENCOUNTER 2024-09-11 15:02 | Outpatient (AMB) | payer MEDICARE, SELFPAY ==
--- NOTE | 2024-09-11 15:04 | MHC.PC.OV ---
Vital Signs 09/11/24 15:12 Height 5 ft 8.95 in Weight 159 lb 6 oz BMI 23.6 BP 108/62 Blood Pressure Location Lt brachial Position Sitting Respiration 16 Pulse 56 Pulse Source Auscultation Temp 99.0 F Temp Source Oral Pulse Oximetry (%) 97 Oxygen Delivery Method Room Air Intake Visit Reasons: Annual Exam Wind Site Manager Required: No Wind Site Manager Name: self Accompanied by: Self / Same As Patient Allergies No Known Allergies Allergy (Verified 09/11/24 15:23) Medication List - Last Reconciled 09/11/24 by HAKAN Arteaga albuterol sulfate 90 mcg/actuation 2 puffs inhalation Q6H PRN APAP Machine/Device Travel APAP 6-16 cm with supplies Duration: 99months apixaban (Eliquis) 5 mg PO BID atorvastatin 20 mg PO DAILY hydrochlorothiazide 12.5 mg PO DAILY losartan 50 mg PO DAILY tadalafil 20 mg PO DAILY PRN Tobacco use date assessed: 09/11/24 Fall risk assessment: No Falls in past year Last assessed Fall Risk: 09/11/24 Dental Screening Dental Screen Date: 09/11/24 Did you have a dental visit in the last 12 months?: Yes Did you have a dental problem in the last 6 months where you did not have access to dental care?: No Was dental information given to patient?: Patient has dentist HPI Annual Exam HPI Details Patient is a 69-year-old male presenting for annual physical Dentist: up to date Eye:Not within 5 years. Recommended Snellen: Right: Left: Corrected vision: Reading glasses only STI screening: Colonoscopy: reports completing 2-3 years ago and he was cleared for 10 years Pap Smer:n/a PHQ-9: Flu:up to date COVID: x5 Tdap: 2021 PNA: 06/2023 Shingles: 09/2023, both through [facility] Diet:regular, he does intermittent fasting Exercise:Active life style. He is runner and does biking intermittently as well. The patient is a 69-year-old male presenting for a wellness visit and management of chronic conditions. The patient has a history of hypertension diagnosed eight years ago, managed with medication, diet control, and meditation. He practices meditation daily and has significantly reduced sodium intake to manage his blood pressure. The patient reports a history of anemia, for which he takes a chelated iron supplement daily. His condition is stable, with no significant changes noted recently. He experienced a single episode of atrial fibrillation approximately a year and a half ago, detected by his smartwatch. He is currently on a CPAP machine for sleep apnea, which he uses nightly with a nasal mask. The patient reports a recent back injury sustained while lifting weights, resulting in sacroiliac joint misalignment. He sought healthcare management, which alleviated the issue, and he continues to focus on core strengthening exercises. He also reports a coccyx injury from a fall during a hiking trip, which has improved over nine weeks with self-care measures. The patient has expressed concerns about potential hearing loss, noting a tendency to listen to audio at higher volumes. He has contacted an affiliate marketing coordinator and requires a referral for further evaluation. Preventative care includes regular colonoscopies, with the last one performed two to three years ago, and vaccinations including flu, COVID-19, tetanus, pneumonia, and shingles. pulm: wants a another scan in year for comparison. Hurt his back lifting weights and had to go to chiropractor and was adjusted and he is feeling much better. Reports that he does want to get his hearing checked. Reports that he has noticed that his hearing has been decreasing. Will put in referral for this. [facility] Medical History (Updated 09/29/24 @ 22:23 by HAKAN Arteaga) Pulmonary nodules Pulmonary nodule DELANO (obstructive sleep apnea) Paroxysmal atrial fibrillation Bradycardia Hernia Hypertension Surgical History Hx of arthroscopic knee surgery Hx of hernia repair Hx of fracture of clavicle Family History Father No problems noted. Mother No problems noted. Other Mental health disorder Social History Housing: House Alcohol intake: current Alcohol intake frequency: a few times a week Patient Tobacco Use Status: Never used Tobacco e-Cigarette/Vaping Use: Never Used Second Hand Smoke Exposure: No service: No Current occupational status: employed Cognitive needs: No Hearing needs: No Vision needs: Yes (Reading glasses) Questionnaire Thrive Questionnaire Date Thrive assessed: 09/11/24 I am a: Patient What is your living situation today?: I have a steady place to live Within the past 12 months, did the food you bought not last and you didn't have the money to get more?: Never true Within the past 12 months, did you worry whether your food would run out before you got money to buy more?: Never true Do you have trouble paying for medicines?: No Do you have trouble getting transportation to medical appointments?: No Do you have trouble paying your heating and electricity bill?: No Do you have trouble taking care of your child, family member or friend?: No Do you have trouble with day-to-day activities such as bathing, preparing meals, shopping, managing finances, etc.?: No Are you currently unemployed and looking for a job?: No Are you interested in more education?: No Please select the resources that you would like help with: None Currently or been in a relationship where the following occur: No concerns reported THRIVE Score: 0 TILA-7 AMB Questionnaire TILA-7 Date TILA - 7 assessed: 09/11/24 Source: Developed by Drs. Mert Lerma, Kerrie Lion, Jayson Waters and colleagues, with an educational albina from [employer]. Review of Systems Const Denies headache(s) Eyes Denies loss of vision ENT Denies vertigo, Denies dizziness, Denies headache(s), Denies sore throat and Reports other (Decreasing hearing) Card Denies chest pain, Denies leg edema and Denies lightheadedness Resp Denies cough, Denies hemoptysis and Denies wheezing GI Denies abdominal pain, Denies melena, Denies constipation, Denies diarrhea and Denies vomiting Denies dysuria, Denies urinary frequency and Denies urinary urgency Musc Denies arthralgias, Denies joint swelling, Denies numbness, Denies tingling and Reports other (Coccyx soreness) Neuro Denies Abnormal speech present, Denies behavioral changes, Denies vertigo, Denies dizziness, Denies headache(s), Denies loss of vision, Denies memory loss, Denies numbness and Denies tingling Psych Denies anxiety, Denies behavioral changes, Denies depression, Denies memory loss and Denies panic attacks Jamie/Lymph Denies easy bleeding and Denies easy bruising Aller/Immun Denies wheezing Physical exam (Primary Care) Vital Signs: Last Vital Signs Temp 99.0 F 09/11/24 15:12 Pulse 56 09/11/24 15:12 Resp 16 09/11/24 15:12 BP 108/62 09/11/24 15:12 Pulse Ox 97 09/11/24 15:12 Oxygen Delivery Method Room Air 09/11/24 15:12 BMI result Body Mass Index 23.6 Tobacco/Smoking Status: Tobacco use Status Tobacco use date assessed 09/11/24 09/11/24 15:09 Patient Tobacco Use Status Never used Tobacco 09/11/24 15:09 e-Cigarette/Vaping Use Never Used 09/11/24 15:09 Thrive Assessment: Date of Thrive Assessment Date Thrive assessed 09/11/24 09/11/24 15:09 Currently or been in a relationship where the following occur: No concerns reported Const General: healthy appearing, no acute distress, alert and awake Nutritional Appearance: well nourished Orientation/consciousness: oriented to person, oriented to place and oriented to time HENMT Ears: TM's normal bilaterally General nose exam: Normal nasal mucous membranes and turbinates present Eyes Conjunctivae: conjunctivae normal Sclerae: sclerae normal Pupils: Equal, round and reactive pupils present Neck Neck: Yes no lymphadenopathy and Yes no JVD Thyroid: Thyroid normal Carotids: no bruits Resp Effort & Inspection: normal respiratory effort and not tachypneic Auscultation: no crackles, no rales, no rhonchi and no wheezes Cardio Rate: regular rate Rhythm: regular rhythm Heart sounds: S1 normal heart sound present, S2 normal heart sound present, no murmurs and normal S1 and S2 GI Palpation (GI): Soft to palpation, nontender, no hepatomegaly and no splenomegaly Auscultation: normal bowel sounds General: Yes no CVA tenderness Back/Spine/Pelvis Back: no CVA tenderness Thoracic/Lumbar Spine: No lumbar spinal tenderness Sacroiliac joints: bilaterally tender Coccyx: no tenderness Skin General skin exam: no rashes or lesions noted and dry skin Neuro General: oriented to person, oriented to place, oriented to time and CN's II-XI intact bilaterally Cranial nerves: Yes Equal, round and reactive pupils present Speech: No Abnormal speech present Gait exam (Neuro): Normal gait present Motor exam (neuro): 07/02 motor strength present throughout and no tremor noted Deep tendon reflexes (DTR's): Right triceps reflex intensity grade: 2+, Left triceps reflex intensity grade: 2+, Rt Biceps (C5, C6): 2+, Left biceps reflex intensity grade: 2+, Right brachioradialis reflex intensity grade: 2+, Left brachioradialis reflex intensity grade: 2+, Right patellar reflex intensity grade: 2+ and Left patellar reflex intensity grade: 2+ Extrem Right upper extremity: full ROM Left upper extremity: full ROM Right lower extremity: full ROM; no edema Left lower extremity: full ROM; no edema Psych Mental Status: mental status grossly normal Speech and movement: Normal speech and movement present Affect: normal affect Attitude: cooperative Thought process: Normal thought process present Results Reviewed Results Reviewed: Laboratory Tests 08/28/24 08/28/24 10:00 10:06 WBC 4.2 L RBC 3.97 L Hgb 12.5 L Hct 36.1 L MCV 90.9 MCH 31.5 MCHC 34.6 RDW 12.5 Plt Count 154 L MPV 10.6 Sodium 141 Potassium 3.8 Chloride 106 Carbon Dioxide 27 Anion Gap 12 BUN 16 Creatinine 0.89 Estimated GFR > 60 Fasting Glucose 94 Estimat Average Glucose 108 Hemoglobin A1c % 5.4 Calcium 8.6 Iron 65 TIBC 230 % Saturation 28 Unsat Iron Binding 165 Total Bilirubin 0.7 AST 32 ALT 29 Alkaline Phosphatase 62 Total Protein 6.4 L Albumin 4.2 Triglycerides 47 Cholesterol 161 LDL Cholesterol, Calc 81 HDL Cholesterol 71 Total PSA 1.60 Vitamin B12 507 25-OH Vitamin D Total 31.1 Folate 7.6 TSH 2.96 Urine Color Yellow Urine Appearance Clear Urine pH 7.5 Ur Specific [place] 1.010 Urine Protein Negative Urine Glucose (UA) Negative Urine Ketones Negative Urine Blood Negative Urine Nitrite Negative Ur Leukocyte Esterase Negative Coding Level of Care Code Est Pt Prev Care >65y(11647) Diagnoses Annual physical exam Z00.00 DELANO (obstructive sleep apnea) G47.33 Pulmonary nodules R91.8 Anemia, unspecified type D64.9 Anemia type: unspecified type Paroxysmal atrial fibrillation I48.0 Bradycardia R00.1 Coronary artery disease involving [place] coronary artery of [place] heart without angina pectoris I25.10 Associated angina: without angina Coronary Disease-Associated Artery/Lesion type: [place] artery [place] vs. transplanted heart: [place] heart Hypertension, unspecified type I10 Hypertension type: unspecified Time Spent (min) 39 Assessment & Plan Assessment & Plan (1) Annual physical exam: Code(s): Z00.00 - Encounter for general adult medical examination without abnormal findings Category: Medical Plan: Preventative guidelines and recent labs reviewed with the patient (2) DELANO (obstructive sleep apnea): Code(s): G47.33 - Obstructive sleep apnea (adult) (pediatric) Category: Medical Plan: Continue CPAP (3) Pulmonary nodules: Code(s): R91.8 - Other nonspecific abnormal finding of lung field Category: Medical Plan: The patient and a CT of the chest in 2020 that demonstrated pulmonary nodule measuring 3 mm in size. Patient had a repeat chest CT in February of 2024 that showed some new nodules measuring up to 5 mm in size that was not appreciated in 2020. Pulmonology plans to repeat the CAT scan in a year to follow up on the nodular densities. (4) Anemia: Code(s): D64.9 - Anemia, unspecified Category: Medical Qualifiers: Anemia type: unspecified type Qualified Code(s): D64.9 - Anemia, unspecified Plan: Continue chelated iron otc (5) Paroxysmal atrial fibrillation: Code(s): I48.0 - Paroxysmal atrial fibrillation Category: Medical Plan: One episode noted on his Apple watch. No further episodes appreciated. Continue apixaban 2.5 mg b.i.d., atorvastatin 20 mg daily, hydrochlorothiazide 12.5 mg, losartan 50 mg daily. Follow up with Cardiology as scheduled (6) Bradycardia: Code(s): R00.1 - Bradycardia, unspecified Category: Medical Plan: Ruled to be autonomic vagus tone suppression in his overall sinus node function, by Cardiology. The patient continues to be asymptomatic. (7) CAD (coronary artery disease): Code(s): I25.10 - Atherosclerotic heart disease of [place] coronary artery without angina pectoris Category: Medical Qualifiers: Associated angina: without angina Coronary Disease-Associated Artery/Lesion type: [place] artery [place] vs. transplanted heart: [place] heart Qualified Code(s): I25.10 - Atherosclerotic heart disease of [place] coronary artery without angina pectoris Plan: The patient had an echocardiogram that showed distal septal apical wall motion abnormality. Subsequent myocardial perfusion imaging suggests a small area of infarct/ischemia. However, the patient had an extremely high workload during the treadmill and had no symptoms or EKG changes (8) Hypertension: Code(s): I10 - Essential (primary) hypertension Category: Medical Qualifiers: Hypertension type: unspecified Qualified Code(s): I10 - Essential (primary) hypertension Plan: Good blood pressure controlled. Reinforced dash diet. Continue hydrochlorothiazide 12.5 mg daily, losartan 50 mg daily Plan The patient will continue current management for hypertension, including medication adherence, dietary sodium reduction, and daily meditation. He is advised to maintain his current exercise regimen, focusing on core strengthening to prevent further back issues. For anemia, the patient will continue taking the chelated iron supplement as prescribed. Regular monitoring of hemoglobin levels is recommended to ensure stability. The patient is advised to follow up with cardiology every six months to monitor atrial fibrillation and overall cardiac health. He should continue using the CPAP machine nightly to manage sleep apnea effectively. A referral to an affiliate marketing coordinator will be provided to assess potential hearing loss. Preventative care measures, including regular colonoscopies and vaccinations, should be maintained as per schedule. Patient was informed and verbally consented to the use of an ambient scribe for clinic note documentation during this visit. Orders: Orders Hemoglobin A1c 6 Months I10 - Essential (primary) hypertension, I25.10 - Atherosclerotic heart disease of [place] coronary artery without angina pectoris, R00.1 - Bradycardia, unspecified, I48.0 - Paroxysmal atrial fibrillation, R91.1 - Solitary pulmonary nodule, D64.9 - Anemia, unspecified, R91.8 - Other nonspecific abnormal finding of lung field, G47.33 - Obstructive sleep apnea (adult) (pediatric) TSH reflex Free T4 6 Months I10 - Essential (primary) hypertension, I25.10 - Atherosclerotic heart disease of [place] coronary artery without angina pectoris, R00.1 - Bradycardia, unspecified, I48.0 - Paroxysmal atrial fibrillation, R91.1 - Solitary pulmonary nodule, D64.9 - Anemia, unspecified, R91.8 - Other nonspecific abnormal finding of lung field, G47.33 - Obstructive sleep apnea (adult) (pediatric) Complete Blood Count Auto Diff 6 Months I10 - Essential (primary) hypertension, I25.10 - Atherosclerotic heart disease of [place] coronary artery without angina pectoris, R00.1 - Bradycardia, unspecified, I48.0 - Paroxysmal atrial fibrillation, R91.1 - Solitary pulmonary nodule, D64.9 - Anemia, unspecified, R91.8 - Other nonspecific abnormal finding of lung field, G47.33 - Obstructive sleep apnea (adult) (pediatric) Comprehensive [place]. Panel Fast 6 Months I10 - Essential (primary) hypertension, I25.10 - Atherosclerotic heart disease of [place] coronary artery without angina pectoris, R00.1 - Bradycardia, unspecified, I48.0 - Paroxysmal atrial fibrillation, R91.1 - Solitary pulmonary nodule, D64.9 - Anemia, unspecified, R91.8 - Other nonspecific abnormal finding of lung field, G47.33 - Obstructive sleep apnea (adult) (pediatric) Lipid Panel 6 Months I10 - Essential (primary) hypertension, I25.10 - Atherosclerotic heart disease of [place] coronary artery without angina pectoris, R00.1 - Bradycardia, unspecified, I48.0 - Paroxysmal atrial fibrillation, R91.1 - Solitary pulmonary nodule, D64.9 - Anemia, unspecified, R91.8 - Other nonspecific abnormal finding of lung field, G47.33 - Obstructive sleep apnea (adult) (pediatric) IRON PROFILE 6 Months I10 - Essential (primary) hypertension, I25.10 - Atherosclerotic heart disease of [place] coronary artery without angina pectoris, R00.1 - Bradycardia, unspecified, I48.0 - Paroxysmal atrial fibrillation, R91.1 - Solitary pulmonary nodule, D64.9 - Anemia, unspecified, R91.8 - Other nonspecific abnormal finding of lung field, G47.33 - Obstructive sleep apnea (adult) (pediatric) UA CC w/rflx Micro + Cult 6 Months I10 - Essential (primary) hypertension, I25.10 - Atherosclerotic heart disease of [place] coronary artery without angina pectoris, R00.1 - Bradycardia, unspecified, I48.0 - Paroxysmal atrial fibrillation, R91.1 - Solitary pulmonary nodule, D64.9 - Anemia, unspecified, R91.8 - Other nonspecific abnormal finding of lung field, G47.33 - Obstructive sleep apnea (adult) (pediatric) Vitamin D 25-OH Total 6 Months I10 - Essential (primary) hypertension, I25.10 - Atherosclerotic heart disease of [place] coronary artery without angina pectoris, R00.1 - Bradycardia, unspecified, I48.0 - Paroxysmal atrial fibrillation, R91.1 - Solitary pulmonary nodule, D64.9 - Anemia, unspecified, R91.8 - Other nonspecific abnormal finding of lung field, G47.33 - Obstructive sleep apnea (adult) (pediatric) Patient Instructions: Follow up in six-month
[2024-09-11 15:12] VITALS: BP 108/62; PULSE 56; RESP 16; TEMP 37.2; O2SAT 97; BMI 23.6
== END 2024-09-11 15:55 | disposition home or self-care (01) ==
LOC: HO.HMCH 15:02
PROVIDERS: PCP Internal Medicine
DX: Z00.00 Encounter for general adult medical examination without abnormal findings (principal); G47.33 Obstructive sleep apnea (adult) (pediatric); R91.8 Other nonspecific abnormal finding of lung field; D64.9 Anemia, unspecified; I48.0 Paroxysmal atrial fibrillation; R00.1 Bradycardia, unspecified; I25.10 Atherosclerotic heart disease of native coronary artery without angina pectoris; I10 Essential (primary) hypertension

== ENCOUNTER 2024-10-03 11:30 | Outpatient (AMB) | payer MEDICARE, SELFPAY ==
[2024-10-03 11:35] VITALS: BP 126/74; PULSE 42; BMI 23.8
--- NOTE | 2024-10-03 11:35 | A.OFFVIS_ITS ---
Vital Signs 10/03/24 11:35 Height 5 ft 8.5 in Weight 158 lb 11.725 oz BMI 23.8 BP 126/74 Blood Pressure Location Lt brachial Position Sitting Pulse 42 L Intake Visit Reasons: 1 yr f/up Intake Note: 6 month follow-up with ekg feeling good Senior Quality Methods Specialist Required: No Allergies No Known Allergies Allergy (Verified 09/11/24 15:23) Medication List - Last Reconciled 10/03/24 by Saqib Lucero MD albuterol sulfate 90 mcg/actuation 2 puffs inhalation Q6H PRN APAP Machine/Device Travel APAP 6-16 cm with supplies Duration: 99months apixaban (Eliquis) 5 mg PO BID atorvastatin 20 mg PO DAILY hydrochlorothiazide 12.5 mg PO DAILY losartan 50 mg PO DAILY tadalafil 20 mg PO DAILY PRN HPI Comments Details: Kelechi comes for follow-up. He has recently completed a bike tour in [place] very bike 176 miles over 5 days. He has had no cardiac complaints during that time. No exertional chest pain or shortness of breath. He has not had any evidence of atrial fibrillation or symptoms of atrial fibrillation. Denies any lightheadedness, syncope. He said when he starts running with a younger group for the 1st 2 miles he feels that he has to struggle a bit but then catch up after that. His blood pressure is well optimized. No bleeding issues or neurologic events. [facility] Medical History Pulmonary nodules Pulmonary nodule DELANO (obstructive sleep apnea) Paroxysmal atrial fibrillation Bradycardia Hernia Hypertension Surgical History Hx of arthroscopic knee surgery Hx of hernia repair Hx of fracture of clavicle Family History Father No problems noted. Mother No problems noted. Other Mental health disorder Social History Housing: House Alcohol intake: current Alcohol intake frequency: a few times a week Patient Tobacco Use Status: Never used Tobacco e-Cigarette/Vaping Use: Never Used Second Hand Smoke Exposure: No service: No Current occupational status: employed Cognitive needs: No Hearing needs: No Vision needs: Yes (Reading glasses) Review of Systems Const Denies chills, Denies fatigue, Denies fever(s), Denies frequent falls, Denies weakness, Denies weight gain and Denies weight loss ENT Denies dizziness Card Denies chest pain, Denies leg edema, Denies lightheadedness, Denies palpitations, Denies dyspnea, Denies dyspnea on exertion, Denies orthopnea and Denies other (loss of consciousness) Resp Denies cough, Denies dyspnea and Denies dyspnea on exertion GI Denies hematochezia and Denies change in stool character Musc Denies abnormal gait, Denies muscle weakness, Denies numbness, Denies radiating pain into limb and Denies tingling Neuro Denies abnormal gait, Denies dizziness, Denies frequent falls, Denies numbness, Denies tingling and Denies weakness Endo Denies fatigue and Denies palpitations Physical Exam Vital Signs: Last Vital Signs Pulse 42 L 10/03/24 11:35 BP 126/74 10/03/24 11:35 BMI result Body Mass Index 23.8 Const General: cooperative, healthy appearing, comfortable and no acute distress Orientation/consciousness: patient oriented x3 Neck Neck: Yes normal visual inspection and Yes no JVD Resp Effort & Inspection: normal respiratory effort Auscultation: clear to auscultation bilaterally, no crackles, no rales, no rhonchi and no wheezes Cardio Jugular venous distension: no JVD Rate: regular rate Rhythm: regular rhythm Heart sounds: S1 normal heart sound present, S2 normal heart sound present, no murmurs and no rubs Neuro General: patient oriented x3 Extrem General: Yes normal to inspection, No no pedal edema and No calf tenderness Psych Appearance: grossly normal Mental Status: mental status grossly normal Speech and movement: Normal speech and movement present Office Procedures EKG Details: EKGs shows junctional bradycardia at 42 beats per minute with possible voltage criteria for LVH 78860-[id number], Complete Assessment & Plan Assessment & Plan (1) Paroxysmal atrial fibrillation: Code(s): I48.0 - Paroxysmal atrial fibrillation Category: Medical Plan: Symptomatic paroxysmal atrial fibrillation without any obvious symptoms. Patient is currently off all rate lowering medications. Currently not on any rhythm control medications. At this point time his symptoms has been suppressed. Encouraged to continue to avoid stimulants. Stress mitigation strategies was discussed. Continue full oral anticoagulation, currently on apixaban 5 mg b.i.d.. CPAP therapy to be pursued. Semi annual renal function test should be followed. (2) Bradycardia: Code(s): R00.1 - Bradycardia, unspecified Category: Medical Plan: Patient with physiologic bradycardia with noted junctional rhythm today. He is in excellent physiologic shape and last year he had a stress test which at high workload had good chronotropic competence. He has no exertional symptoms. No indication for pacemaker therapy at this point time. (3) CAD (coronary artery disease): Code(s): I25.10 - Atherosclerotic heart disease of [place] coronary artery without angina pectoris Category: Medical Qualifiers: Associated angina: without angina Coronary Disease-Associated Artery/Lesion type: [place] artery [place] vs. transplanted heart: [place] heart Qualified Code(s): I25.10 - Atherosclerotic heart disease of [place] coronary artery without angina pectoris Plan: CAD noted based on wall motion abnormality and stress testing although he has no exertional symptoms at high workload. Currently on full oral anticoagulation with apixaban. Continue aggressive blood pressure control which is currently well optimized. Target goal blood pressure less than 130/84. Continue statin t herapy with target goal LDL less than 70 mg/dL. Will follow up in the clinic in 1 year's time, sooner p.r.n.. Thank you for allowing me to partake in his care Coding Level of Care Code Est Pt Level 4 (36360) Complex EM visit Add On G2211 Diagnoses Paroxysmal atrial fibrillation I48.0 Bradycardia R00.1 Coronary artery disease involving [place] coronary artery of [place] heart without angina pectoris I25.10 Associated angina: without angina Coronary Disease-Associated Artery/Lesion type: [place] artery [place] vs. transplanted heart: [place] heart CPT Codes EKG - CPT: 56584-[id number], Complete ([id number])
--- OUTSIDE RECORDS SUMMARY | 2024-10-03 12:19 | XMS_ITS | Clinical Summary ---
Author Organization [facility] Address [address] [place] [id number] Phone Care Team Providers Care Network Project Manager Name Role Phone Sarah Magana MD Primary Care Provider Allergies Active Allergy Reactions Criticality Noted Date Comments Kiwi 07/07/2024 Other Reaction(s): throat closes laryngeal swelling, resolution with benadryl Medications hydroCHLOROthia zide (HYDRODIURIL) 12.5 MG tablet Take 12.5 mg by mouth daily. 2 Active losartan (COZAAR) 100 MG tablet Take 100 mg by mouth daily. 2 Active ELIQUIS 5 mg tablet 5 Active atorvastatin (LIPITOR) 20 MG tablet Take 1 tablet by mouth every morning. 5 Active propranoloL (INDERAL) 10 MG immediate release tablet TAKE 1-2 TABLETS BY MOUTH NEEDED FOR ANXIETY 5 Active albuterol 90 mcg/actuation inhaler Inhale 1-2 puffs into the lungs every 4 (four) hours as needed for wheezing or shortness of breath/dyspnea . 6.7 g 5 Active fluticasone propionate 110 mcg/actuation inhaler Inhale 1-2 puffs into the lungs 2 (two) times a day. 12 g 5 Active Active Problems No known active problems Encounters Date Type Department Care Team Description 07/07/2024 11:30 AM EDT Office Visit [facility] [address] [address] Blank Gates PA-C Exercise-induced asthma (Primary Dx) from Last 3 Months Immunizations No known immunizations Social History Tobacco Use Types Packs/Day Years Used Date Smoking Tobacco: Never Smokeless Tobacco: Never Education Answer Date Recorded Are you interested in more education? Not on justin e 06/26/2022 Are you concerned about learning? Not on file 06/26/2022 No 06/26/2022 No 06/26/2022 Digital Access Answer Date Recorded No 07/25/2022 No 07/25/2022 No 07/25/2022 Reliable internet access at home? Not on file 07/25/2022 Device with a working camera? Not on file Sex and Gender Information Value Date Recorded Sex Assigned at Not on file Legal Sex Male 11:53 AM EDT Gender Identity Not on file Sexual Orientation Not on file Last Filed Vital Signs Vital Sign Reading Time Taken Comments Blood Pressure 138/84 07/07/2024 1:49 PM EDT Pulse 43 07/07/2024 1:49 PM EDT Temperature 36.7 C (98 F) 07/07/2024 1:49 PM EDT Respiratory Rate 14 07/07/2024 1:49 PM EDT Oxygen Saturation 100% 07/07/2024 1:49 PM EDT Inhaled Oxygen Concentration - - Weight 68.9 kg (152 lb) 07/07/2024 1:49 PM EDT Height 175.3 cm (5' 9 ) 07/07/2024 1:49 PM EDT Body Mass Index 22.45 07/07/2024 1:49 PM EDT Plan of Treatment Health Maintenance Due Date Last Done Comments CREATININE LEVEL 1955 LIPID PANEL 1955 POTASSIUM LEVEL 1955 DEPRESSION SCREENING 1967 HEPATITIS C SCREENING 1973 COLOGUARD 2000 COLONOSCOPY 2000 COLORECTAL CANCER SCREENING 2000 FIT TEST 2000 FOBT 2000 SIGMOIDOSCOPY 2000 VIRTUAL COLONOSCOPY 2000 PNEUMOCOCCAL VACCINES (50+ years) (2 of 2 - PPSV23) 10/13/2021 10/13/2020 COVID-19 VACCINE (2023- season) 2024 11/10/2023, 01/06/2023, 06/29/2022, Additional history exists Adult Td,Tdap Booster 12/28/2031 12/27/2021 SMOKING STATUS SCREENING (Once After 26 Yrs) Completed 08/07/2021 ZOSTER VACCINES Completed 08/24/2022, 06/29/2022 RSV VACCINE Completed 01/06/2023 HEPATITIS A VACCINES Aged Out No long er eligible based on patient's age to complete this topic HIB VACCINES Aged Out No longer eligi ble based on patient's age to complete this topic MENINGOCOCCAL VACCINES (ACWY) Aged Out No longer eligible based on patient's age to complete this topic MENINGOCOCCAL VACCINES (B) Aged Out N o longer eligible based on patient's age to complete this topic Medical Devices Not on file Insurance MEDICARE PART A & B [facility] [place] [facility] [place] Address: [facility] [id number] [place] [address] MEDICARE PART A & B Member Subscriber Plan / Payer (Ef fective 2020-Present) Name:Kelechi Cano Member ID:[id number] Relation to Subscriber:Self Name:Kelechi Cano Subscriber ID:[id number] Payer ID:[id number] Group ID:Not on file Type:Medicare Address: [employer] [address] [place] [phone] [facility] MEDICARE SUPPLEMENT MEDICARE PART A & B [facility] MEDICARE SUPPLEMENT MEDICARE PART A & B [facility] MEDICARE SUPPLEMENT MEDICARE PART A & B [facility] MEDICARE SUPPLEMENT MEDICARE PART A & B [place]IC[place] [facility] [place] [place] Address: [facility] [id number] [place], [place] [phone] MEDICARE PART A & B [place]IC[place] [facility] [place] Address: [facility] [id number] [place] [phone] MEDICARE PART A & B MEDICARE SUPPLEMENT Member Subscriber Plan / Payer (Ef fective 2021-Present) Name:Kelechi Cano Relation to Subscriber:Self Name:Kelechi Cano Payer ID:[id number] (NAIC) Group ID:Not on file Type:[employer] Address: [place] [phone] MEDICARE PART A & B MEDICARE SUPPLEMENT Care Teams Network Project Manager Relationship Specialty Start Date End Date Izzy, Rosalie, MD PCP - General Internal Medicine 08/07/21 Additional Source Comments The information contained in this document represents components of the legal health record. It is not the complete legal health record.[facility]
== END 2024-10-03 12:09 | disposition home or self-care (01) ==
LOC: HO.HCS 11:31
PROVIDERS: PCP Internal Medicine; Visit Provider Internal Medicine Cardiovascular Disease
DX: I48.0 Paroxysmal atrial fibrillation (principal); R00.1 Bradycardia, unspecified; I25.10 Atherosclerotic heart disease of native coronary artery without angina pectoris
CPT/HCPCS: 93010; 99214; G2211

== ENCOUNTER → 2024-10-03 11:30 | Outpatient (BNVA) | payer MEDICARE, SELFPAY | PROVIDERS: PCP Internal Medicine; Visit Provider Internal Medicine Cardiovascular Disease | DX: I48.0 Paroxysmal atrial fibrillation (principal); I25.10 Atherosclerotic heart disease of native coronary artery without angina pectoris; R00.1 Bradycardia, unspecified; I51.7 Cardiomegaly; R94.31 Abnormal electrocardiogram [ECG] [EKG] | CPT/HCPCS: 93005; 99212 ==

== ENCOUNTER 2024-10-19 12:24 | Outpatient (REF) | payer MEDICARE, SELFPAY ==
--- OUTSIDE RECORDS SUMMARY | 2024-10-19 12:26 | XMS_ITS | Clinical Summary ---
Author Organization 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 [place] [phone] [facility] MEDICARE SUPPLEMENT MEDICARE PART A & B [facility] MEDICARE SUPPLEMENT Member Subscriber Plan / Payer (Ef fective 2021-Present) Name:Kelechi Cano Relation to Subscriber:Self Name:Kelechi Cano Payer ID:[id number] (NAIC) Group ID:Not on file Type:O Address: [address] [place] [phone] MEDICARE PART A & B MEDICARE SUPPLEMENT MEDICARE PART A & B MEDICARE SUPPLEMENT MEDICARE PART A & B [facility] MEDICARE SUPPLEMENT MEDICARE PART A & B [facility] MEDICARE SUPPLEMENT MEDICARE PART A & B [facility] MEDICARE SUPPLEMENT MEDICARE PART A & B Member Subscriber Plan / Payer ( fective 2020-) Name:Mel Canorick Member ID:[id number] Relation to Subscriber:Self Name:Kelechi Cano Subscriber ID:[id number] Payer ID:[id number] Group ID:Not on file Type:Medicare Address: [employer] [address] [place] [phone] [facility] MEDICARE SUPPLEMENT MEDICARE PART A & B [facility] MEDICARE SUPPLEMENT Care Teams Blasting Contract Miner Relationship Specialty Start Date End Date Sarah Magana MD PCP - General Internal Medicine 08/07/21 Additional Source Comments The information contained in this document represents components of the legal health record. It is not the complete legal health record.[facility]"
== END 2024-10-19 12:25 | disposition home or self-care (01) ==
LOC: HO.SH 12:24
DX: Z01.118 Encounter for examination of ears and hearing with other abnormal findings (principal); H90.3 Sensorineural hearing loss, bilateral
CPT/HCPCS: 92557; 92567